=== PATIENT | male | born 1985 | race Caucasian/White ===

== ENCOUNTER 2020-10-22 11:07 | Emergency (ER) | payer MEDICAID, SELFPAY ==
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
[2020-10-22 11:22] VITALS: BP 120/69; PULSE 84; RESP 20; TEMP 36.6; O2SAT 98; BMI 19.0
[2020-10-22 12:00] VITALS: BP 126/66; PULSE 79; RESP 18; TEMP 36.6; O2SAT 99
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
[2020-10-22 12:31] LABS: MANUAL DIFF FLAG NO
[2020-10-22 12:33] LABS: Basophils Percent Auto 0.3 % (0-2); Eosinophils Percent Auto 0.6 % (0-4); Hematocrit 42.6 % (42-52); Hemoglobin 13.2 g/dl (14.0-18.0); Imm Gran Abs Auto 0.01 X10*3/uL (0.00-0.03); Imm Gran Pct Auto 0.2 % (0.0-0.4); Lymphocytes Percent Auto 15.6 % (20-40); Mean Corpuscular Hemoglobin 25.8 pg (27.0-33.0); Mean Corpuscular Volume 83.2 fL (80-98); Mean Platelet Volume 9.7 fL (9.4-12.4); Monocytes Absolute Auto 0.5 X10*3/uL (0.1-1.2); Monocytes Percent Auto 7.4 % (2-11); Neutrophils Absolute Auto 4.7 X10*3/uL (2.0-8.3); Neutrophils Percent Auto 75.9 % (45-73); Platelet Count 298 X10*3/uL (160-400); Red Blood Count 5.12 X10*6/uL (4.60-5.80); Red Cell Distribution Width 14.6 % (11.0-16.0); White Blood Count 6.2 X10*3/uL (4.8-10.8)
[2020-10-22 12:50] LABS: Ethanol < 10 mg/dL
[2020-10-22 12:56] LABS: Alanine Aminotransferase 13 U/L (0-40); Albumin Level 4.1 g/dL (3.5-5.0); Alkaline Phosphatase 89 U/L (39-117); Anion Gap 9 (12-20); Aspartate Amino Transferase 17 U/L (5-37); Bilirubin Total 0.3 mg/dL (0.0-1.0); Blood Urea Nitrogen 7 mg/dL (9-16); Calcium 8.8 mg/dL (8.4-10.2); Carbon Dioxide 33 mmol/L (22-29); Chloride 104 mmol/L (96-108); Creatinine Clr Calc Pharmacy 89.7; Estimated Glomerular Filt Rate > 60; Glucose Random 101 mg/dL (60-115); Potassium 4.2 mmol/L (3.3-5.1); Sodium 142 mmol/L (135-145); Total Protein 6.8 g/dL (6.5-8.0)
[2020-10-22 12:56] LABS: Glucose Urine UA NEG (NEG); Leukocyte Esterase Urine NEG (NEG); Nitrite Urine NEG (NEG); Specific Gravity - Urine 1.025 (1.005-1.025); Urine Blood NEG (NEG); Urine Ketones 5 MG/DL (NEG); Urine Protein NEG (NEG-TRACE)
[2020-10-22 13:05] LABS: Appearance Urine CLEAR; Color Urine YELLOW
[2020-10-22 13:24] LABS: Amorphous Sediment Urine 4+ /LPF; RBC Urine 0 /HPF (0); WBC Urine 0 /HPF (0-4)
[2020-10-22 13:42] LABS: Amphetamine Screen Urine Not Detected (Not Detect); Barbiturates, Urine Not Detected (Not Detect); Benzodiazepines Screen Urine Not Detected (Not Detect); Cannabinoid Screen Urine POSITIVE (Not Detect); Cocaine Screen Urine POSITIVE (Not Detect); Opiate Screen Urine POSITIVE (Not Detect); Phencyclidine Screen Urine Not Detected (Not Detect)
== END 2020-10-22 16:43 | disposition home or self-care (01) ==
PROVIDERS: Nurse Practitioner Primary Care; Emergency Provider Internal Medicine
DX: S02.2XXA Fracture of nasal bones, initial encounter for closed fracture (principal); F33.1 Major depressive disorder, recurrent, moderate; F41.1 Generalized anxiety disorder; F43.0 Acute stress reaction; Y04.8XXA Assault by other bodily force, initial encounter; Y93.9 Activity, unspecified; Y92.9 Unspecified place or not applicable; Y99.9 Unspecified external cause status
CPT/HCPCS: 36415; 70160; 80053; 80307; 80320; 81001; 85025; 99284

== ENCOUNTER 2022-07-03 08:04 | Emergency (ER) | payer MEDICAID, SELFPAY ==
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
[2022-07-03 08:09] VITALS: BP 108/61; PULSE 85; RESP 19; TEMP 36.6; O2SAT 100; BMI 20.5
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
== END 2022-07-03 10:52 | disposition home or self-care (01) ==
PROVIDERS: Emergency Provider Emergency Medicine
DX: R07.81 Pleurodynia (principal); R07.89 Other chest pain; Z79.899 Other long term (current) drug therapy
CPT/HCPCS: 71101; 99283

== ENCOUNTER 2022-07-20 13:27 | Emergency (ER) | payer MEDICAID, SELFPAY ==
[2022-07-20 13:41] VITALS: BP 132/80; PULSE 77; RESP 17; TEMP 36.9; O2SAT 98
[2022-07-20 13:46] VITALS: BP 125/81; BP 132/80; PULSE 77; PULSE 86; RESP 17; TEMP 36.9; O2SAT 98; BMI 21.2
--- NOTE | 2022-07-20 14:23 | ECG_ITS ---
Test Reason : SUBSTANCE ABUSE Blood Pressure : / mmHG Vent. Rate : 060 BPM Atrial Rate : 060 BPM P-R Int : 162 ms QRS Dur : 082 ms QT Int : 392 ms P-R-T Axes : 007 076 064 degrees QTc Int : 392 ms Normal sinus rhythm with sinus arrhythmia Normal ECG When compared with ECG of 30-AUG-2018 14:20, No significant change was found Referred By: Karoline Hobbs Electronically Signed By:STEWART TIDWELL MD
--- NOTE | 2022-07-20 14:24 | ED.PSYCH ---
HPI - Psych General Chief Complaint: Psychiatric Symptoms <Karoline Hobbs MD - Last Filed: 07/20/22 18:45> Stated Complaint: SI <Karoline Hobbs MD - Last Filed: 07/20/22 18:45> Time Seen by Provider: 07/20/22 14:19 <Karoline Hobbs MD - Last Filed: 07/20/22 18:45> Source: patient and EMS <Karoline Hobbs MD - Last Filed: 07/20/22 18:45> Mode of arrival: EMS <Karoline Hobbs MD - Last Filed: 07/20/22 18:45> Limitations: no limitations <Karoline Hobbs MD - Last Filed: 07/20/22 18:45> History of Present Illness HPI Narrative: Patient comes to the emergency room complaining of depression, feeling suicidal, planning to jump of a bridge or if her of a moving car. Patient was found behind a senior [employer]. Patient seemed confused, no signs of trauma. Patient denies falling, hitting his head. Patient stated that he took have Suboxone from a clinic this morning. Patient's main concern is that he has not slept in 3 days. Patient denies homicidal ideation <Karoline Hobbs MD - Last Filed: 07/20/22 18:45> Related Data Home Medications: Previous Rx's Medication Instructions Recorded ibuprofen 600 mg tablet 600 mg PO Q8H PRN pain #10 tabs 07/03/22 lidocaine 5 % topical patch 1 patch topical DAILY #15 ea 07/03/22 <Karoline Hobbs MD - Last Filed: 07/20/22 18:45> Allergies/Adverse Reactions: Allergies Allergy/AdvReac Type Severity Reaction Status Date / Time fluoxetine [From PROZAC] AdvReac Severe AGITATION/A Unverified 05/28/20 15:51 GGRESSIVE <Karoline Hobbs MD - Last Filed: 07/20/22 18:45> Review of Systems Review of Systems: Constitutional : No Weight loss, No Fever, No Chills, No Night Sweats, No Fatigue, No Malaise ENT/Mouth : No Hearing loss, No Ear Pain, No Nasal Congestion, No Sinus Pain, No Hoarseness, No sore throat, No Rhinorrhea, No Swallowing Difficulty Eyes: No Eye Pain, No Swelling, No Redness, No Foreign Body, No Discharge, No Vision Changes Cardiovascular : No Chest Pain, No SOB, No Dyspnea on Exertion, No Orthopnea, No Edema, No Palpitations Respiratory : No Cough, No Sputum, No Wheezing, No Smoke Exposure, No Dyspnea Gastrointestinal : No Nausea, No Vomiting, No Diarrhea, No Constipation, No abdominal Pain, No Hematochezia, No Melena Genitourinary : no irregular bleeding, No Dysuria, No Urinary Frequency, No Hematuria, No Urinary Incontinence, No Urgency, No Flank Pain, No Urinary Flow Changes, No Hesitancy Musculoskeletal : No joint pain, No Myalgias, No Joint Swelling Skin : No Skin Lesions, No rash Neuro : No Weakness, No Numbness, No Paresthesias, No Loss of Consciousness, No Dizziness, No Headache, complaining of not being able to sleep for 3 days Psych : Complaining of anxiety, depression, suicidal ideation, homicidal ideation Heme/Lymph: No Bruising, No Bleeding,No Lymphadenopathy Endocrine : No Polyuria, No Polydipsia, No Temperature Intolerance <Karoline Hobbs MD - Last Filed: 07/20/22 18:45> [facility] Past Medical History Medical History: Medical History Substance abuse <Karoline Hobbs MD - Last Filed: 07/20/22 18:45> Social History Social History: Social History Alcohol intake: current Smoked in Last 30 Days: Yes Use of substances other than those prescribed or required for medical reasons: Yes Substance Use Type: Other Advance Directives: No <Karoline Hobbs MD - Last Filed: 07/20/22 18:45> Physical Exam Vital Signs: Vital Signs: Last Vital Signs Temp 98.3 F 07/21/22 09:19 Pulse 97 07/21/22 09:19 Resp 17 07/21/22 09:19 BP 143/80 H 07/21/22 09:19 Pulse Ox 97 07/21/22 09:19 O2 Del Method 07/21/22 09:19 BMI result Body Mass Index 21.2 <Karoline Hobbs MD - Last Filed: 07/20/22 18:45> Vital Signs: Last Vital Signs Temp 98.3 F 07/21/22 09:19 Pulse 97 07/21/22 09:19 Resp 17 07/21/22 09:19 BP 143/80 H 07/21/22 09:19 Pulse Ox 97 07/21/22 09:19 O2 Del Method 07/21/22 09:19 BMI result Body Mass Index 21.2 <Jaya Rodarte MD - Last Filed: 07/21/22 09:36> Const: Other: Appearance: Alert. Oriented X3. No acute distress. Somnolent but easily arousable Eyes: Pupils equal, round and reactive to light. ENT: Pharynx normal. Neck: Normal inspection. Neck supple. No lymph nodes noted. No crepitus CVS: Normal heart rate and rhythm. Pulses normal. Normal S1 and S2 Respiratory: No respiratory distress. Breath sounds normal. No Wheezing. No rales Abdomen: Soft and nontender. No rigidity. No distention. Skin: Skin warm and dry. Normal skin color. Normal skin turgor. Extremities: No lower extremity edema. No Lacerations. No Rash Neuro: Oriented X 3. No motor deficit. No sensory deficit. Moving all extremities. No slurred speech. CN 2 through 12 grossly intact Psych: calm, cooperative, normal affect <Karoline Hobbs MD - Last Filed: 07/20/22 18:45> Course Course Course Narrative: Patient's baseline labs are pending. Afterwards, when medically cleared, patient [facility] Before patient's labs have been reviewed, patient's U tox is positive for opiates, fentanyl and cocaine. [facility] consult pending. Physician observation started at 15:30 Mass path was reviewed, patient picked up his Suboxone on 07/18/2022, states that his Suboxone was swollen. Care team[facility] evaluated the patient. We will dose him today 1 dose with Suboxone. Tomorrow in the morning he can be discharged. All the papers will be ready for discharge. Patient is here yes for symptomatic treatment, no other insults or treatment pending. Patient is not longer suicidal. <Karoline Hobbs MD - Last Filed: 07/20/22 18:45> Patient's baseline labs are pending. Afterwards, when medically cleared, patient is to be seen by [facility]. Before patient's labs have been reviewed, patient's U tox is positive for opiates, fentanyl and cocaine. [facility] consult pending. Physician observation started at 15:30 Mass path was reviewed, patient picked up his Suboxone on 07/18/2022, states that his Suboxone was swollen. [facility] team[facility] evaluated the patient. We will dose him today 1 dose with Suboxone. Tomorrow in the morning he can be discharged. All the papers will be ready for discharge. Patient is here yes for symptomatic treatment, no other insults or treatment pending. Patient is not longer suicidal. 0935: End physician observation: The patient has been evaluated by the care team and there was a plan for him to start Suboxone. Patient has no complaints and he will be discharged with instructions. <Jaya Rodarte MD - Last Filed: 07/21/22 09:36> Medications Administered Discontinued Medications Generic Name Dose Route Start Last Admin Trade Name Freq PRN Reason Stop Dose Admin Buprenorphine/Naloxone 1 film 07/20/22 18:43 07/20/22 18:48 Buprenorphine/Naloxone 8/2 Mg Film SUBLINGUAL 07/20/22 18:44 1 film ONCE ONE Administration <Karoline Hobbs MD - Last Filed: 07/20/22 18:45> Medications Administered Discontinued Medications Generic Name Dose Route Start Last Admin Trade Name Freq PRN Reason Stop Dose Admin Buprenorphine/Naloxone 1 film 07/20/22 18:43 07/20/22 18:48 Buprenorphine/Naloxone 8/2 Mg Film SUBLINGUAL 07/20/22 18:44 1 film ONCE ONE Administration <Jaya Rodarte MD - Last Filed: 07/21/22 09:36> MDM - Psych Lab Data Result diagrams: : 07/20/22 14:50 07/20/22 14:50 <Karoline Hobbs MD - Last Filed: 07/20/22 18:45> Labs: Lab Results 07/20/22 07/20/22 07/20/22 Range/Units 14:50 14:50 14:50 WBC 10.4 (4.8-10.8) X10*3/uL RBC 5.49 (4.60-5.80) X10*6/uL Hgb 14.3 (14.0-18.0) g/dl Hct 45.6 (42.0-52.0) % MCV 83.1 (80.0-98.0) fL MCH 26.0 L (27.0-33.0) pg MCHC 31.4 (31.0-36.0) g/dl RDW 14.8 (11.0-16.0) % Plt Count 222 (160-400) X10*3/uL MPV 9.7 (9.4-12.4) fL Immature Gran % (Auto) 0.3 (0.0-0.4) % Neut % (Auto) 85.3 H (45-73) % Lymph % (Auto) 8.7 L (20-40) % Whitman % (Auto) 4.9 (2-11) % Eos % (Auto) 0.4 (0-4) % Baso % (Auto) 0.4 (0-2) % Lymph # (Auto) 0.9 L (1.2-4.9) X10*3/uL [place]man # (Auto) 0.5 (0.1-1.2) X10*3/uL Eos # (Auto) 0.0 (0.0-0.4) X10*3/uL Baso # (Auto) 0.0 (0.0-0.2) X10*3/uL Abs Immat Gran (auto) 0.03 (0.00-0.03) X10*3/uL Absolute Neuts (auto) 8.9 H (2.0-8.3) x10*3/uL Absolute Nucleated RBC 0.000 (0.0-0.012) X10*3/uL Nucleated RBC % (auto) 0.0 (0.0-0.2) /100WBC Sodium 143 (135-145) mmol/L Potassium 3.8 (3.3-5.1) mmol/L Chloride 106 (96-108) mmol/L Carbon Dioxide 27 (22-29) mmol/L Anion Gap 14 (12-20) BUN 11 (9-16) mg/dL Creatinine 0.76 (0.5-1.4) mg/dL Estim Creat Clear Calc 120.6 Estimated GFR > 60 Random Glucose 100 (60-115) mg/dL Calcium 8.9 (8.4-10.2) mg/dL Magnesium 2.3 (1.6-2.6) mg/dL Total Bilirubin 0.4 (0.0-1.0) mg/dL Direct Bilirubin 0.2 (0.0-0.5) mg/dL AST 17 (5-37) U/L ALT 12 (0-40) U/L Alkaline Phosphatase 99 (39-117) U/L Troponin I High Sens < 3.5 (<3.5-35.0) ng/L Total Protein 6.9 (6.5-8.0) g/dL Albumin 4.1 (3.5-5.0) g/dL Lipase 15 (8-78) U/L Urine Color Urine Appearance Urine pH (5.0-9.0) Ur Specific [place] (1.005-1.025) Urine Protein (Neg-Trace) mg/dL Urine Glucose (UA) (Negative) mg/dL Urine Ketones (Negative) mg/dL Urine Blood (Negative) Urine Nitrite (Negative) Ur Leukocyte Esterase (Negative) Urine Opiates Screen (Not Detect) Urine Fentanyl Screen (Not Detect) Ur Barbiturates Screen (Not Detect) Ur Phencyclidine Scrn (Not Detect) Ur Amphetamines Screen (Not Detect) U Benzodiazepines Scrn (Not Detect) Urine Cocaine Screen (Not Detect) U Marijuana (THC) Screen (Not Detect) Ethyl Alcohol mg/dL COVID-19 ([facility]) (Negative) COVID-19 Clin Com 07/20/22 07/20/22 07/20/22 Range/Units 14:50 14:50 14:50 WBC (4.8-10.8) X10*3/uL RBC (4.60-5.80) X10*6/uL Hgb (14.0-18.0) g/dl Hct (42.0-52.0) % MCV (80.0-98.0) fL MCH (27.0-33.0) pg MCHC (31.0-36.0) g/dl RDW (11.0-16.0) % Plt Count (160-400) X10*3/uL MPV (9.4-12.4) fL Immature Gran % (Auto) (0.0-0.4) % Neut % (Auto) (45-73) % Lymph % (Auto) (20-40) % Whitman % (Auto) (2-11) % Eos % (Auto) (0-4) % Baso % (Auto) (0-2) % Lymph # (Auto) (1.2-4.9) X10*3/uL [place] # (Auto) (0.1-1.2) X10*3/uL Eos # (Auto) (0.0-0.4) X10*3/uL Baso # (Auto) (0.0-0.2) X10*3/uL Abs Immat Gran (auto) (0.00-0.03) X10*3/uL Absolute Neuts (auto) (2.0-8.3) x10*3/uL Absolute Nucleated RBC (0.0-0.012) X10*3/uL Nucleated RBC % (auto) (0.0-0.2) /100WBC Sodium (135-145) mmol/L Potassium (3.3-5.1) mmol/L Chloride (96-108) mmol/L Carbon Dioxide (22-29) mmol/L Anion Gap (12-20) BUN (9-16) mg/dL Creatinine (0.5-1.4) mg/dL Estim Creat Clear Calc Estimated GFR Random Glucose (60-115) mg/dL Calcium (8.4-10.2) mg/dL Magnesium (1.6-2.6) mg/dL Total Bilirubin (0.0-1.0) mg/dL Direct Bilirubin (0.0-0.5) mg/dL AST (5-37) U/L ALT (0-40) U/L Alkaline Phosphatase (39-117) U/L Troponin I High Sens (<3.5-35.0) ng/L Total Protein (6.5-8.0) g/dL Albumin (3.5-5.0) g/dL Lipase (8-78) U/L Urine Color Yellow Urine Appearance Cloudy Urine pH 7.0 (5.0-9.0) Ur Specific [place] 1.020 (1.005-1.025) Urine Protein Negative (Neg-Trace) mg/dL Urine Glucose (UA) Negative (Negative) mg/dL Urine Ketones 15 (Negative) mg/dL Urine Blood Negative (Negative) Urine Nitrite Negative (Negative) Ur Leukocyte Esterase Negative (Negative) Urine Opiates Screen (Not Detect) Urine Fentanyl Screen (Not Detect) Ur Barbiturates Screen (Not Detect) Ur Phencyclidine Scrn (Not Detect) Ur Amphetamines Screen (Not Detect) U Benzodiazepines Scrn (Not Detect) Urine Cocaine Screen (Not Detect) U Marijuana (THC) Screen (Not Detect) Ethyl Alcohol < 10 mg/dL COVID-19 ([facility]) Negative (Negative) COVID-19 Clin Com See Note 07/20/22 Range/Units 14:50 WBC (4.8-10.8) X10*3/uL RBC (4.60-5.80) X10*6/uL Hgb (14.0-18.0) g/dl Hct (42.0-52.0) % MCV (80.0-98.0) fL MCH (27.0-33.0) pg MCHC (31.0-36.0) g/dl RDW (11.0-16.0) % Plt Count (160-400) X10*3/uL MPV (9.4-12.4) fL Immature Gran % (Auto) (0.0-0.4) % Neut % (Auto) (45-73) % Lymph % (Auto) (20-40) % Whitman % (Auto) (2-11) % Eos % (Auto) (0-4) % Baso % (Auto) (0-2) % Lymph # (Auto) (1.2-4.9) X10*3/uL [place] # (Auto) (0.1-1.2) X10*3/uL Eos # (Auto) (0.0-0.4) X10*3/uL Baso # (Auto) (0.0-0.2) X10*3/uL Abs Immat Gran (auto) (0.00-0.03) X10*3/uL Absolute Neuts (auto) (2.0-8.3) x10*3/uL Absolute Nucleated RBC (0.0-0.012) X10*3/uL Nucleated RBC % (auto) (0.0-0.2) /100WBC Sodium (135-145) mmol/L Potassium (3.3-5.1) mmol/L Chloride (96-108) mmol/L Carbon Dioxide (22-29) mmol/L Anion Gap (12-20) BUN (9-16) mg/dL Creatinine (0.5-1.4) mg/dL Estim Creat Clear Calc Estimated GFR Random Glucose (60-115) mg/dL Calcium (8.4-10.2) mg/dL Magnesium (1.6-2.6) mg/dL Total Bilirubin (0.0-1.0) mg/dL Direct Bilirubin (0.0-0.5) mg/dL AST (5-37) U/L ALT (0-40) U/L Alkaline Phosphatase (39-117) U/L Troponin I High Sens (<3.5-35.0) ng/L Total Protein (6.5-8.0) g/dL Albumin (3.5-5.0) g/dL Lipase (8-78) U/L Urine Color Urine Appearance Urine pH (5.0-9.0) Ur Specific [place] (1.005-1.025) Urine Protein (Neg-Trace) mg/dL Urine Glucose (UA) (Negative) mg/dL Urine Ketones (Negative) mg/dL Urine Blood (Negative) Urine Nitrite (Negative) Ur Leukocyte Esterase (Negative) Urine Opiates Screen POSITIVE H (Not Detect) Urine Fentanyl Screen POSITIVE H (Not Detect) Ur Barbiturates Screen Not Detected (Not Detect) Ur Phencyclidine Scrn Not Detected (Not Detect) Ur Amphetamines Screen Not Detected (Not Detect) U Benzodiazepines Scrn Not Detected (Not Detect) Urine Cocaine Screen POSITIVE H (Not Detect) U Marijuana (THC) Screen Not Detected (Not Detect) Ethyl Alcohol mg/dL COVID-19 ([facility]) (Negative) COVID-19 Clin Com <Karoline Hobbs MD - Last Filed: 07/20/22 18:45> Lab Results 07/20/22 07/20/22 07/20/22 Range/Units 14:50 14:50 14:50 WBC 10.4 (4.8-10.8) X10*3/uL RBC 5.49 (4.60-5.80) X10*6/uL Hgb 14.3 (14.0-18.0) g/dl Hct 45.6 (42.0-52.0) % MCV 83.1 (80.0-98.0) fL MCH 26.0 L (27.0-33.0) pg MCHC 31.4 (31.0-36.0) g/dl RDW 14.8 (11.0-16.0) % Plt Count 222 (160-400) X10*3/uL MPV 9.7 (9.4-12.4) fL Immature Gran % (Auto) 0.3 (0.0-0.4) % Neut % (Auto) 85.3 H (45-73) % Lymph % (Auto) 8.7 L (20-40) % [place] % (Auto) 4.9 (2-11) % Eos % (Auto) 0.4 (0-4) % Baso % (Auto) 0.4 (0-2) % Lymph # (Auto) 0.9 L (1.2-4.9) X10*3/uL [place] # (Auto) 0.5 (0.1-1.2) X10*3/uL Eos # (Auto) 0.0 (0.0-0.4) X10*3/uL Baso # (Auto) 0.0 (0.0-0.2) X10*3/uL Abs Immat Gran (auto) 0.03 (0.00-0.03) X10*3/uL Absolute Neuts (auto) 8.9 H (2.0-8.3) x10*3/uL Absolute Nucleated RBC 0.000 (0.0-0.012) X10*3/uL Nucleated RBC % (auto) 0.0 (0.0-0.2) /100WBC Sodium 143 (135-145) mmol/L Potassium 3.8 (3.3-5.1) mmol/L Chloride 106 (96-108) mmol/L Carbon Dioxide 27 (22-29) mmol/L Anion Gap 14 (12-20) BUN 11 (9-16) mg/dL Creatinine 0.76 (0.5-1.4) mg/dL Estim Creat Clear Calc 120.6 Estimated GFR > 60 Random Glucose 100 (60-115) mg/dL Calcium 8.9 (8.4-10.2) mg/dL Magnesium 2.3 (1.6-2.6) mg/dL Total Bilirubin 0.4 (0.0-1.0) mg/dL Direct Bilirubin 0.2 (0.0-0.5) mg/dL AST 17 (5-37) U/L ALT 12 (0-40) U/L Alkaline Phosphatase 99 (39-117) U/L Troponin I High Sens < 3.5 (<3.5-35.0) ng/L Total Protein 6.9 (6.5-8.0) g/dL Albumin 4.1 (3.5-5.0) g/dL Lipase 15 (8-78) U/L Urine Color Urine Appearance Urine pH (5.0-9.0) Ur Specific [place] (1.005-1.025) Urine Protein (Neg-Trace) mg/dL Urine Glucose (UA) (Negative) mg/dL Urine Ketones (Negative) mg/dL Urine Blood (Negative) Urine Nitrite (Negative) Ur Leukocyte Esterase (Negative) Urine Opiates Screen (Not Detect) Urine Fentanyl Screen (Not Detect) Ur Barbiturates Screen (Not Detect) Ur Phencyclidine Scrn (Not Detect) Ur Amphetamines Screen (Not Detect) U Benzodiazepines Scrn (Not Detect) Urine Cocaine Screen (Not Detect) U Marijuana (THC) Screen (Not Detect) Ethyl Alcohol mg/dL COVID-19 ([facility]) (Negative) COVID-19 Clin Com 07/20/22 07/20/22 07/20/22 Range/Units 14:50 14:50 14:50 WBC (4.8-10.8) X10*3/uL RBC (4.60-5.80) X10*6/uL Hgb (14.0-18.0) g/dl Hct (42.0-52.0) % MCV (80.0-98.0) fL MCH (27.0-33.0) pg MCHC (31.0-36.0) g/dl RDW (11.0-16.0) % Plt Count (160-400) X10*3/uL MPV (9.4-12.4) fL Immature Gran % (Auto) (0.0-0.4) % Neut % (Auto) (45-73) % Lymph % (Auto) (20-40) % [place] % (Auto) (2-11) % Eos % (Auto) (0-4) % Baso % (Auto) (0-2) % Lymph # (Auto) (1.2-4.9) X10*3/uL [place] # (Auto) (0.1-1.2) X10*3/uL Eos # (Auto) (0.0-0.4) X10*3/uL Baso # (Auto) (0.0-0.2) X10*3/uL Abs Immat Gran (auto) (0.00-0.03) X10*3/uL Absolute Neuts (auto) (2.0-8.3) x10*3/uL Absolute Nucleated RBC (0.0-0.012) X10*3/uL Nucleated RBC % (auto) (0.0-0.2) /100WBC Sodium (135-145) mmol/L Potassium (3.3-5.1) mmol/L Chloride (96-108) mmol/L Carbon Dioxide (22-29) mmol/L Anion Gap (12-20) BUN (9-16) mg/dL Creatinine (0.5-1.4) mg/dL Estim Creat Clear Calc Estimated GFR Random Glucose (60-115) mg/dL Calcium (8.4-10.2) mg/dL Magnesium (1.6-2.6) mg/dL Total Bilirubin (0.0-1.0) mg/dL Direct Bilirubin (0.0-0.5) mg/dL AST (5-37) U/L ALT (0-40) U/L Alkaline Phosphatase (39-117) U/L Troponin I High Sens (<3.5-35.0) ng/L Total Protein (6.5-8.0) g/dL Albumin (3.5-5.0) g/dL Lipase (8-78) U/L Urine Color Yellow Urine Appearance Cloudy Urine pH 7.0 (5.0-9.0) Ur Specific [place] 1.020 (1.005-1.025) Urine Protein Negative (Neg-Trace) mg/dL Urine Glucose (UA) Negative (Negative) mg/dL Urine Ketones 15 (Negative) mg/dL Urine Blood Negative (Negative) Urine Nitrite Negative (Negative) Ur Leukocyte Esterase Negative (Negative) Urine Opiates Screen (Not Detect) Urine Fentanyl Screen (Not Detect) Ur Barbiturates Screen (Not Detect) Ur Phencyclidine Scrn (Not Detect) Ur Amphetamines Screen (Not Detect) U Benzodiazepines Scrn (Not Detect) Urine Cocaine Screen (Not Detect) U Marijuana (THC) Screen (Not Detect) Ethyl Alcohol < 10 mg/dL COVID-19 ([facility]) Negative (Negative) COVID-19 Clin Com See Note 07/20/22 Range/Units 14:50 WBC (4.8-10.8) X10*3/uL RBC (4.60-5.80) X10*6/uL Hgb (14.0-18.0) g/dl Hct (42.0-52.0) % MCV (80.0-98.0) fL MCH (27.0-33.0) pg MCHC (31.0-36.0) g/dl RDW (11.0-16.0) % Plt Count (160-400) X10*3/uL MPV (9.4-12.4) fL Immature Gran % (Auto) (0.0-0.4) % Neut % (Auto) (45-73) % Lymph % (Auto) (20-40) % [place] % (Auto) (2-11) % Eos % (Auto) (0-4) % Baso % (Auto) (0-2) % Lymph # (Auto) (1.2-4.9) X10*3/uL [place] # (Auto) (0.1-1.2) X10*3/uL Eos # (Auto) (0.0-0.4) X10*3/uL Baso # (Auto) (0.0-0.2) X10*3/uL Abs Immat Gran (auto) (0.00-0.03) X10*3/uL Absolute Neuts (auto) (2.0-8.3) x10*3/uL Absolute Nucleated RBC (0.0-0.012) X10*3/uL Nucleated RBC % (auto) (0.0-0.2) /100WBC Sodium (135-145) mmol/L Potassium (3.3-5.1) mmol/L Chloride (96-108) mmol/L Carbon Dioxide (22-29) mmol/L Anion Gap (12-20) BUN (9-16) mg/dL Creatinine (0.5-1.4) mg/dL Estim Creat Clear Calc Estimated GFR Random Glucose (60-115) mg/dL Calcium (8.4-10.2) mg/dL Magnesium (1.6-2.6) mg/dL Total Bilirubin (0.0-1.0) mg/dL Direct Bilirubin (0.0-0.5) mg/dL AST (5-37) U/L ALT (0-40) U/L Alkaline Phosphatase (39-117) U/L Troponin I High Sens (<3.5-35.0) ng/L Total Protein (6.5-8.0) g/dL Albumin (3.5-5.0) g/dL Lipase (8-78) U/L Urine Color Urine Appearance Urine pH (5.0-9.0) Ur Specific [place] (1.005-1.025) Urine Protein (Neg-Trace) mg/dL Urine Glucose (UA) (Negative) mg/dL Urine Ketones (Negative) mg/dL Urine Blood (Negative) Urine Nitrite (Negative) Ur Leukocyte Esterase (Negative) Urine Opiates Screen POSITIVE H (Not Detect) Urine Fentanyl Screen POSITIVE H (Not Detect) Ur Barbiturates Screen Not Detected (Not Detect) Ur Phencyclidine Scrn Not Detected (Not Detect) Ur Amphetamines Screen Not Detected (Not Detect) U Benzodiazepines Scrn Not Detected (Not Detect) Urine Cocaine Screen POSITIVE H (Not Detect) U Marijuana (THC) Screen Not Detected (Not Detect) Ethyl Alcohol mg/dL COVID-19 ([facility]) (Negative) COVID-19 Clin Com <Jaya Rodarte MD - Last Filed: 07/21/22 09:36> Discharge Plan Discharge Clinical Impression: Substance abuse <Karoline Hobbs MD - Last Filed: 07/20/22 18:45> Patient Disposition: Home, Self-Care <Karoline Hobbs MD - Last Filed: 07/20/22 18:45> Instructions: Polysubstance Abuse (ED) <Karoline Hobbs MD - Last Filed: 07/20/22 18:45> Additional Instructions: Please report to the Suboxone clinic 1st thing in the morning. Please follow-up with your primary care physician tomorrow. If you have any worsening or new symptoms, please return to the emergency room or call 911 <Karoline Hobbs MD - Last Filed: 07/20/22 18:45> Prescriptions: No Action lidocaine 5 % adhesive patch,medicated 1 patch topical DAILY Qty: 15 0RF Rx Instructions: leave on most painful area for up to 12 hrs ibuprofen 600 mg tablet 600 mg PO Q8H PRN (Reason: pain) Qty: 10 0RF <Karoline Hobbs MD - Last Filed: 07/20/22 18:45>
--- NOTE | 2022-07-20 14:30 | PC.NURSE ---
pt seen by md, aware of plan of care.
[2022-07-20 14:57] LABS: MANUAL DIFF FLAG NO
[2022-07-20 15:01] LABS: Basophils Percent Auto 0.4 % (0-2); Eosinophils Percent Auto 0.4 % (0-4); Hematocrit 45.6 % (42.0-52.0); Hemoglobin 14.3 g/dl (14.0-18.0); Imm Gran Abs Auto 0.03 X10*3/uL (0.00-0.03); Imm Gran Pct Auto 0.3 % (0.0-0.4); Lymphocytes Absolute Auto 0.9 X10*3/uL (1.2-4.9); Lymphocytes Percent Auto 8.7 % (20-40); Mean Corpuscular HGB Conc 31.4 g/dl (31.0-36.0); Mean Corpuscular Volume 83.1 fL (80.0-98.0); Mean Platelet Volume 9.7 fL (9.4-12.4); Monocytes Absolute Auto 0.5 X10*3/uL (0.1-1.2); Monocytes Percent Auto 4.9 % (2-11); Neutrophils Absolute Auto 8.9 x10*3/uL (2.0-8.3); Neutrophils Percent Auto 85.3 % (45-73); Platelet Count 222 X10*3/uL (160-400); Red Blood Count 5.49 X10*6/uL (4.60-5.80); Red Cell Distribution Width 14.8 % (11.0-16.0); White Blood Count 10.4 X10*3/uL (4.8-10.8)
[2022-07-20 15:03] LABS: Appearance Urine Cloudy; Color Urine Yellow; Glucose Urine UA Negative (Negative); Leukocyte Esterase Urine Negative (Negative); Nitrite Urine Negative (Negative); Urine Blood Negative (Negative); Urine Ketones 15 mg/dL (Negative); Urine Protein Negative (Neg-Trace)
[2022-07-20 15:15] LABS: COVID-19 Test Negative (Negative)
[2022-07-20 15:18] LABS: Ethanol < 10 mg/dL
[2022-07-20 15:22] LABS: Alanine Aminotransferase 12 U/L (0-40); Albumin Level 4.1 g/dL (3.5-5.0); Alkaline Phosphatase 99 U/L (39-117); Amphetamine Screen Urine Not Detected (Not Detect); Anion Gap 14 (12-20); Aspartate Amino Transferase 17 U/L (5-37); Barbiturates, Urine Not Detected (Not Detect); Benzodiazepines Screen Urine Not Detected (Not Detect); Bilirubin Direct 0.2 mg/dL (0.0-0.5); Bilirubin Total 0.4 mg/dL (0.0-1.0); Blood Urea Nitrogen 11 mg/dL (9-16); Calcium 8.9 mg/dL (8.4-10.2); Cannabinoid Screen Urine Not Detected (Not Detect); Carbon Dioxide 27 mmol/L (22-29); Chloride 106 mmol/L (96-108); Cocaine Screen Urine POSITIVE (Not Detect); Creatinine Clr Calc Pharmacy 120.6; Estimated Glomerular Filt Rate > 60; Fentanyl, urine POSITIVE (Not Detect); Glucose Random 100 mg/dL (60-115); Lipase 15 U/L (8-78); Magnesium 2.3 mg/dL (1.6-2.6); Opiate Screen Urine POSITIVE (Not Detect); Phencyclidine Screen Urine Not Detected (Not Detect); Potassium 3.8 mmol/L (3.3-5.1); Sodium 143 mmol/L (135-145); Total Protein 6.9 g/dL (6.5-8.0)
[2022-07-20 15:28] LABS: Troponin-I High Sensitivity < 3.5 ng/L (<3.5-35.0)
[2022-07-20 16:52] VITALS: BP 125/81; PULSE 66; RESP 18; TEMP 37.2; O2SAT 99
--- NOTE | 2022-07-20 18:28 | PC.NURSE ---
Care team at the bedside.
--- NOTE | 2022-07-20 18:45 | PC.NURSE ---
Pt seen by care team. Care team reports pt to be discharged in the morning. Dr. Hobbs will order Suboxone for today. Pt aware of plan of care.
[2022-07-20] MEDS: Buprenorphine/Naloxone 8/2 mg FILM 1 FILM SUBLINGUAL (18:48)
--- NOTE | 2022-07-20 18:49 | MHC.CARE ---
Pt is a 37 year old male who is seen in the Behavioral Pod at [facility] due to presenting lethargic with SI. Pt states felt like killing myself. He reports feeling a little better since arriving to the ED. He reports recently getting kicked out of his friends house and staying at a food truck with a blanket. Pt reports visiting the [facility] on 07/18/2022 and reciveing a few days worth of suboxone, which he states got stolen from the food truck. He reports withdrawal symptoms such as body aches and requested a dose of suboxone. He denises current SI/HI, and denies AVH. Plan is to give pt a dose and discharge in the morning, this plan is discussed with and agreed upon with Dr. Hobbs. Pt is aware of plan and agrees to visit [facility] in the morning.
[2022-07-20 22:00] VITALS: RESP 20
[2022-07-21 06:10] VITALS: BP 117/85; PULSE 67; RESP 16; TEMP 36.9; O2SAT 98
--- NOTE | 2022-07-21 06:49 | PC.NURSE ---
report given to ALEXANDRO Butler
[2022-07-21 09:19] VITALS: BP 143/80; PULSE 97; RESP 17; TEMP 36.8; O2SAT 97
== END 2022-07-21 09:45 | disposition home or self-care (01) ==
PROVIDERS: Emergency Provider Emergency Medicine
DX: F33.1 Major depressive disorder, recurrent, moderate (principal); R45.851 Suicidal ideations; F14.10 Cocaine abuse, uncomplicated; Z20.822 Contact with and (suspected) exposure to COVID-19; Z79.899 Other long term (current) drug therapy
CPT/HCPCS: 36415; 80048; 80076; 80307; 81003; 82077; 83690; 83735; 84484; 85025; 87635; 93005; 99285

== ENCOUNTER 2022-08-26 14:05 | Emergency (ER) | payer MEDICAID, SELFPAY ==
[2022-08-26 14:14] VITALS: BMI 19.8
[2022-08-26 15:48] VITALS: RESP 18
--- NOTE | 2022-08-26 15:56 | ECG_ITS ---
Test Reason : MEDICAL CLEARANCE Blood Pressure : / mmHG Vent. Rate : 061 BPM Atrial Rate : 061 BPM P-R Int : 162 ms QRS Dur : 084 ms QT Int : 432 ms P-R-T Axes : -08 080 054 degrees QTc Int : 434 ms Normal sinus rhythm Minimal voltage criteria for LVH, may be normal variant ( Sokolow-Harper ) Borderline ECG When compared with ECG of 20-JUL-2022 14:32, No significant change was found Referred By: Generic ED Physician Electronically Signed By:JENNIFER JENSEN
--- NOTE | 2022-08-26 16:09 | ED.PSYCH ---
HPI - Psych General Chief Complaint: Psychiatric Symptoms <ANGEL Ventura - Last Filed: 08/26/22 17:55> Stated Complaint: Unconcise <ANGEL Ventura - Last Filed: 08/26/22 17:55> Time Seen by Provider: 08/26/22 16:09 <ANGEL Ventura - Last Filed: 08/26/22 17:55> Source: patient and EMS <ANGEL Ventura - Last Filed: 08/26/22 17:55> Mode of arrival: EMS <ANGEL Ventura - Last Filed: 08/26/22 17:55> Limitations: no limitations <ANGEL Ventura - Last Filed: 08/26/22 17:55> History of Present Illness HPI Narrative: 37-year-old male with history of polysubstance abuse and depression with a recent passing away of his mother presents to the ER via EMS after he was found minimally responsive in an alley after using heroing. He is here for evaluation of depression and suicidal ideation. He states he has been using 1 bag of heroin per day. He admits suicidality but is a poor historian. He appears to be under the influence of drugs and is lethargic. He is protecting his airway. airway. . <ANGEL Ventura - Last Filed: 08/26/22 17:55> MD complaint: suicidal ideation, feels depressed and substance abuse <ANGEL Ventura - Last Filed: 08/26/22 17:55> Onset (ago): unknown <ANGEL Ventura - Last Filed: 08/26/22 17:55> History of same: Yes <ANGEL Ventura - Last Filed: 08/26/22 17:55> Exacerbating factors: drug use <ANGEL Ventura Last Filed: 08/26/22 17:55> Context: recent drug abuse and significant life stressor <ANGEL Ventura Last Filed: 08/26/22 17:55> Associated psychiatric symptoms: depression and suicidal ideation <ANGEL Ventura Last Filed: 08/26/22 17:55> Associated symptoms: denies other symptoms <ANGEL Ventura - Last Filed: 08/26/22 17:55> Treatments prior to arrival: none <ANGEL Ventura - Last Filed: 08/26/22 17:55> If self harm: admits thoughts of self harm <ANGEL Ventura - Last Filed: 08/26/22 17:55> Related Data Home Medications: Home Medications Medication Instructions Recorded Confirmed No Known Home Meds 08/26/22 08/26/22 <ANGEL Ventura - Last Filed: 08/26/22 17:55> Allergies/Adverse Reactions: Allergies Allergy/AdvReac Type Severity Reaction Status Date / Time fluoxetine [From PROZAC] AdvReac Severe AGITATION/A Verified 08/28/22 05:37 GGRESSIVE <ANGEL Ventura - Last Filed: 08/26/22 17:55> Review of Systems Review of Systems: Yes Unobtainable due to mental condition and Unobtainable due to mental status <ANGEL Ventura - Last Filed: 08/26/22 17:55> [facility] Past Medical History Medical History: Medical History Substance abuse <ANGEL Ventura - Last Filed: 08/26/22 17:55> Social History Social History: Social History Alcohol intake: unknown Smoked in Last 30 Days: Yes Use of substances other than those prescribed or required for medical reasons: Yes Substance Use Type: Opiates Advance Directives: No Advance Directives Information Provided: No <ANGEL Ventura - Last Filed: 08/26/22 17:55> Physical Exam Vital Signs: Vital Signs: Last Vital Signs Temp 99.3 F 08/28/22 17:45 Pulse 78 08/28/22 17:45 Resp 18 08/28/22 17:45 BP 132/89 08/28/22 17:45 Pulse Ox 98 08/28/22 17:45 O2 Del Method 08/28/22 17:45 BMI result Body Mass Index 19.8 <ANGEL Ventura - Last Filed: 08/26/22 17:55> Vital Signs: Last Vital Signs Temp 99.3 F 08/28/22 17:45 Pulse 78 08/28/22 17:45 Resp 18 08/28/22 17:45 BP 132/89 08/28/22 17:45 Pulse Ox 98 08/28/22 17:45 O2 Del Method 08/28/22 17:45 BMI result Body Mass Index 19.8 <Baljinder Mckeon MD - Last Filed: 08/27/22 07:01> Vital Signs: Last Vital Signs Temp 99.3 F 08/28/22 17:45 Pulse 78 08/28/22 17:45 Resp 18 08/28/22 17:45 BP 132/89 08/28/22 17:45 Pulse Ox 98 08/28/22 17:45 O2 Del Method 08/28/22 17:45 BMI result Body Mass Index 19.8 <ANGEL Perez - Last Filed: 08/28/22 18:01> Appearance: male in his 30s sleeping on the stretcher. Arouses to voice but quickly falls back asleep Eyes: Pupils equal, round and reactive to light. ENT: Pharynx normal. Neck: Normal inspection. Neck supple. CVS: Normal heart rate and rhythm. Pulses normal. Respiratory: No respiratory distress. Breath sounds normal. Abdomen: Soft and nontender. +BS x4 Skin: Skin warm and dry. Normal skin color. Normal skin turgor. No rashes. Extremities: atraumatic x4. Neuro: Lethargic but arouses to voice, answers simple questions and falls back asleep. Refusing to participate in examination/interview <ANGEL Ventura - Last Filed: 08/26/22 17:55> Course Course Course Narrative: 37-year-old male with history of polysubstance abuse and depression presents to the ER for evaluation after he was found minimally responsive in an alley way after using drugs. He admits to suicidal ideation with significant life stressor of his mother passing away recently. Upon review of records he has been to the ER a few times for depression and polysubstance use. Will check U tox, lab workup and have crisis team evaluate him once clinically sober. <ANGEL Ventura - Last Filed: 08/26/22 17:55> 37-year-old male with history of polysubstance abuse and depression presents to the ER for evaluation after he was found minimally responsive in an alley way after using drugs. He admits to suicidal ideation with significant life stressor of his mother passing away recently. Upon review of records he has been to the ER a few times for depression and polysubstance use. Will check U tox, lab workup and have crisis team evaluate him once clinically sober. 0600 08/28/2022 Patient cleared for discharge to [facility]. <ANGEL Perez - Last Filed: 08/28/22 18:01> Reevaluation(s) Reevaluation #1: EKG with question LVH, also could be side effect of cocaine. unchanged from prior compared to 2021 which is reassuring. Lab workup was unremarkable. Troponin is less than 3.5. His prior drug screens were positive for cocaine, opiates and fentanyl. Alcohol level is negative today but still awaiting drug screen in his urine. He has no chest pain or shortness of breath. He is sleeping. Will add troponin. <ANGEL Ventura - Last Filed: 08/26/22 17:55> Reevaluation #2: Lab workup was unremarkable. Troponin is less than 3.5. <ANGEL Ventura - Last Filed: 08/26/22 17:55> Reevaluation #3: Physician observation started at 18:52. Patient placed in physician observation because patient is awaiting [facility] evaluation for the possible need of inpatient psych admission. At the time observation was started patient's vital signs were stable. Patient is sleeping. CV: RRR and lungs are clear. Will continue to monitor. <ANGEL Ventura - Last Filed: 08/26/22 17:55> Time: 07:01 <Baljinder Mckeon MD - Last Filed: 08/27/22 07:01> Additional Reevaluation(s): Physician observation continued patient was agitated last night and is awaiting evaluation by crisis <Baljinder Mckeon MD - Last Filed: 08/27/22 07:01> Medications Administered Discontinued Medications Generic Name Dose Route Start Last Admin Trade Name Freq PRN Reason Stop Dose Admin Clonidine HCl 0.1 mg 08/27/22 15:38 08/27/22 15:40 Clonidine Hcl 0.1 Mg Tablet PO 08/27/22 15:39 0.1 mg ONCE ONE Administration Protocol Lorazepam 2 mg 08/26/22 19:56 08/26/22 20:15 Lorazepam 1 Mg Tablet PO 08/26/22 19:57 Not Given ONCE ONE Lorazepam 2 mg 08/27/22 03:27 08/27/22 03:34 Lorazepam 1 Mg Tablet PO 08/27/22 03:28 2 mg ONCE ONE Administration Lorazepam 2 mg 08/28/22 00:59 08/28/22 01:13 Lorazepam 1 Mg Tablet PO 08/28/22 01:00 2 mg ONCE ONE Administration <ANGEL Ventura - Last Filed: 08/26/22 17:55> Medications Administered Discontinued Medications Generic Name Dose Route Start Last Admin Trade Name Freq PRN Reason Stop Dose Admin Clonidine HCl 0.1 mg 08/27/22 15:38 08/27/22 15:40 Clonidine Hcl 0.1 Mg Tablet PO 08/27/22 15:39 0.1 mg ONCE ONE Administration Protocol Lorazepam 2 mg 08/26/22 19:56 08/26/22 20:15 Lorazepam 1 Mg Tablet PO 08/26/22 19:57 Not Given ONCE ONE Lorazepam 2 mg 08/27/22 03:27 08/27/22 03:34 Lorazepam 1 Mg Tablet PO 08/27/22 03:28 2 mg ONCE ONE Administration Lorazepam 2 mg 08/28/22 00:59 08/28/22 01:13 Lorazepam 1 Mg Tablet PO 08/28/22 01:00 2 mg ONCE ONE Administration <Baljinder Mckeon MD - Last Filed: 08/27/22 07:01> Medications Administered Discontinued Medications Generic Name Dose Route Start Last Admin Trade Name Freq PRN Reason Stop Dose Admin Clonidine HCl 0.1 mg 08/27/22 15:38 08/27/22 15:40 Clonidine Hcl 0.1 Mg Tablet PO 08/27/22 15:39 0.1 mg ONCE ONE Administration Protocol Lorazepam 2 mg 08/26/22 19:56 08/26/22 20:15 Lorazepam 1 Mg Tablet PO 08/26/22 19:57 Not Given ONCE ONE Lorazepam 2 mg 08/27/22 03:27 08/27/22 03:34 Lorazepam 1 Mg Tablet PO 08/27/22 03:28 2 mg ONCE ONE Administration Lorazepam 2 mg 08/28/22 00:59 08/28/22 01:13 Lorazepam 1 Mg Tablet PO 08/28/22 01:00 2 mg ONCE ONE Administration <ANGEL Perez - Last Filed: 08/28/22 18:01> Medical Decision Making Lab Data MDM Lab Attestation statement: I reviewed the patient's lab results. <ANGEL Ventura - Last Filed: 08/26/22 17:55> Result Diagrams: : 08/26/22 16:39 08/26/22 16:39 <ANGEL Ventura - Last Filed: 08/26/22 17:55> Labs: Lab Results 08/26/22 08/26/22 08/26/22 Range/Units 15:57 16:39 16:39 WBC 7.7 (4.8-10.8) X10*3/uL RBC 4.96 (4.60-5.80) X10*6/uL Hgb 12.9 L (14.0-18.0) g/dl Hct 41.0 L (42.0-52.0) % MCV 82.7 (80.0-98.0) fL MCH 26.0 L (27.0-33.0) pg MCHC 31.5 (31.0-36.0) g/dl RDW 14.3 (11.0-16.0) % Plt Count 265 (160-400) X10*3/uL MPV 9.7 (9.4-12.4) fL Immature Gran % (Auto) 0.3 (0.0-0.4) % Neut % (Auto) 67.2 (45-73) % Lymph % (Auto) 25.2 (20-40) % [place] % (Auto) 6.2 (2-11) % Eos % (Auto) 0.6 (0-4) % Baso % (Auto) 0.5 (0-2) % Lymph # (Auto) 2.0 (1.2-4.9) X10*3/uL [place] # (Auto) 0.5 (0.1-1.2) X10*3/uL Eos # (Auto) 0.1 (0.0-0.4) X10*3/uL Baso # (Auto) 0.0 (0.0-0.2) X10*3/uL Abs Immat Gran (auto) 0.02 (0.00-0.03) X10*3/uL Absolute Neuts (auto) 5.2 (2.0-8.3) x10*3/uL Absolute Nucleated RBC 0.000 (0.0-0.012) X10*3/uL Nucleated RBC % (auto) 0.0 (0.0-0.2) /100WBC Sodium 141 (135-145) mmol/L Potassium 3.5 (3.3-5.1) mmol/L Chloride 106 (96-108) mmol/L Carbon Dioxide 28 (22-29) mmol/L Anion Gap 11 L (12-20) BUN 9 (9-16) mg/dL Creatinine 0.83 (0.5-1.4) mg/dL Estim Creat Clear Calc 102.6 Estimated GFR > 60 Random Glucose 144 H (60-115) mg/dL Calcium 8.9 (8.4-10.2) mg/dL Total Bilirubin 0.4 (0.0-1.0) mg/dL AST 19 (5-37) U/L ALT 13 (0-40) U/L Alkaline Phosphatase 87 (39-117) U/L Troponin I High Sens (<3.5-35.0) ng/L Total Protein 6.3 L (6.5-8.0) g/dL Albumin 3.8 (3.5-5.0) g/dL Urine Color Urine Appearance Urine pH (5.0-9.0) Ur Specific [place] (1.005-1.025) Urine Protein (Neg-Trace) mg/dL Urine Glucose (UA) (Negative) mg/dL Urine Ketones (Negative) mg/dL Urine Blood (Negative) Urine Nitrite (Negative) Ur Leukocyte Esterase (Negative) Urine RBC (0-2) /HPF Urine WBC (0-5) /HPF Ur Squamous Epith Cells (0-2) /HPF Urine Bacteria (None Seen) Hyaline Casts (0-2) /LPF Urine Opiates Screen (Not Detect) Urine Fentanyl Screen (Not Detect) Ur Barbiturates Screen (Not Detect) Ur Phencyclidine Scrn (Not Detect) Ur Amphetamines Screen (Not Detect) U Benzodiazepines Scrn (Not Detect) Urine Cocaine Screen (Not Detect) U Marijuana (THC) Screen (Not Detect) Ethyl Alcohol < 10 mg/dL Influenza Type A (PCR) NEGATIVE (Negative) Influenza Type B (PCR) NEGATIVE (Negative) RSV RNA Qual (PCR) NEGATIVE (Negative) SARS-CoV-2 RNA (RT-PCR) NEGATIVE (Negative) 08/26/22 08/26/22 08/26/22 Range/Units 16:39 19:29 19:29 WBC (4.8-10.8) X10*3/uL RBC (4.60-5.80) X10*6/uL Hgb (14.0-18.0) g/dl Hct (42.0-52.0) % MCV (80.0-98.0) fL MCH (27.0-33.0) pg MCHC (31.0-36.0) g/dl RDW (11.0-16.0) % Plt Count (160-400) X10*3/uL MPV (9.4-12.4) fL Immature Gran % (Auto) (0.0-0.4) % Neut % (Auto) (45-73) % Lymph % (Auto) (20-40) % [place] % (Auto) (2-11) % Eos % (Auto) (0-4) % Baso % (Auto) (0-2) % Lymph # (Auto) (1.2-4.9) X10*3/uL [place] # (Auto) (0.1-1.2) X10*3/uL Eos # (Auto) (0.0-0.4) X10*3/uL Baso # (Auto) (0.0-0.2) X10*3/uL Abs Immat Gran (auto) (0.00-0.03) X10*3/uL Absolute Neuts (auto) (2.0-8.3) x10*3/uL Absolute Nucleated RBC (0.0-0.012) X10*3/uL Nucleated RBC % (auto) (0.0-0.2) /100WBC Sodium (135-145) mmol/L Potassium (3.3-5.1) mmol/L Chloride (96-108) mmol/L Carbon Dioxide (22-29) mmol/L Anion Gap (12-20) BUN (9-16) mg/dL Creatinine (0.5-1.4) mg/dL Estim Creat Clear Calc Estimated GFR Random Glucose (60-115) mg/dL Calcium (8.4-10.2) mg/dL Total Bilirubin (0.0-1.0) mg/dL AST (5-37) U/L ALT (0-40) U/L Alkaline Phosphatase (39-117) U/L Troponin I High Sens < 3.5 (<3.5-35.0) ng/L Total Protein (6.5-8.0) g/dL Albumin (3.5-5.0) g/dL Urine Color Yellow Urine Appearance Clear Urine pH 7.0 (5.0-9.0) Ur Specific [place] 1.020 (1.005-1.025) Urine Protein Negative (Neg-Trace) mg/dL Urine Glucose (UA) Negative (Negative) mg/dL Urine Ketones Negative (Negative) mg/dL Urine Blood Negative (Negative) Urine Nitrite Negative (Negative) Ur Leukocyte Esterase Negative (Negative) Urine RBC 0-2 (0-2) /HPF Urine WBC 0-5 (0-5) /HPF Ur Squamous Epith Cells 0-2 (0-2) /HPF Urine Bacteria None Seen (None Seen) Hyaline Casts 0-2 (0-2) /LPF Urine Opiates Screen POSITIVE H (Not Detect) Urine Fentanyl Screen POSITIVE H (Not Detect) Ur Barbiturates Screen Not Detected (Not Detect) Ur Phencyclidine Scrn POSITIVE H (Not Detect) Ur Amphetamines Screen Not Detected (Not Detect) U Benzodiazepines Scrn Not Detected (Not Detect) Urine Cocaine Screen POSITIVE H (Not Detect) U Marijuana (THC) Screen Not Detected (Not Detect) Ethyl Alcohol mg/dL Influenza Type A (PCR) (Negative) Influenza Type B (PCR) (Negative) RSV RNA Qual (PCR) (Negative) SARS-CoV-2 RNA (RT-PCR) (Negative) <ANGEL Ventura - Last Filed: 08/26/22 17:55> Lab Results 08/26/22 08/26/22 08/26/22 Range/Units 15:57 16:39 16:39 WBC 7.7 (4.8-10.8) X10*3/uL RBC 4.96 (4.60-5.80) X10*6/uL Hgb 12.9 L (14.0-18.0) g/dl Hct 41.0 L (42.0-52.0) % MCV 82.7 (80.0-98.0) fL MCH 26.0 L (27.0-33.0) pg MCHC 31.5 (31.0-36.0) g/dl RDW 14.3 (11.0-16.0) % Plt Count 265 (160-400) X10*3/uL MPV 9.7 (9.4-12.4) fL Immature Gran % (Auto) 0.3 (0.0-0.4) % Neut % (Auto) 67.2 (45-73) % Lymph % (Auto) 25.2 (20-40) % [place] % (Auto) 6.2 (2-11) % Eos % (Auto) 0.6 (0-4) % Baso % (Auto) 0.5 (0-2) % Lymph # (Auto) 2.0 (1.2-4.9) X10*3/uL [place] # (Auto) 0.5 (0.1-1.2) X10*3/uL Eos # (Auto) 0.1 (0.0-0.4) X10*3/uL Baso # (Auto) 0.0 (0.0-0.2) X10*3/uL Abs Immat Gran (auto) 0.02 (0.00-0.03) X10*3/uL Absolute Neuts (auto) 5.2 (2.0-8.3) x10*3/uL Absolute Nucleated RBC 0.000 (0.0-0.012) X10*3/uL Nucleated RBC % (auto) 0.0 (0.0-0.2) /100WBC Sodium 141 (135-145) mmol/L Potassium 3.5 (3.3-5.1) mmol/L Chloride 106 (96-108) mmol/L Carbon Dioxide 28 (22-29) mmol/L Anion Gap 11 L (12-20) BUN 9 (9-16) mg/dL Creatinine 0.83 (0.5-1.4) mg/dL Estim Creat Clear Calc 102.6 Estimated GFR > 60 Random Glucose 144 H (60-115) mg/dL Calcium 8.9 (8.4-10.2) mg/dL Total Bilirubin 0.4 (0.0-1.0) mg/dL AST 19 (5-37) U/L ALT 13 (0-40) U/L Alkaline Phosphatase 87 (39-117) U/L Troponin I High Sens (<3.5-35.0) ng/L Total Protein 6.3 L (6.5-8.0) g/dL Albumin 3.8 (3.5-5.0) g/dL Urine Color Urine Appearance Urine pH (5.0-9.0) Ur Specific [place] (1.005-1.025) Urine Protein (Neg-Trace) mg/dL Urine Glucose (UA) (Negative) mg/dL Urine Ketones (Negative) mg/dL Urine Blood (Negative) Urine Nitrite (Negative) Ur Leukocyte Esterase (Negative) Urine RBC (0-2) /HPF Urine WBC (0-5) /HPF Ur Squamous Epith Cells (0-2) /HPF Urine Bacteria (None Seen) Hyaline Casts (0-2) /LPF Urine Opiates Screen (Not Detect) Urine Fentanyl Screen (Not Detect) Ur Barbiturates Screen (Not Detect) Ur Phencyclidine Scrn (Not Detect) Ur Amphetamines Screen (Not Detect) U Benzodiazepines Scrn (Not Detect) Urine Cocaine Screen (Not Detect) U Marijuana (THC) Screen (Not Detect) Ethyl Alcohol < 10 mg/dL Influenza Type A (PCR) NEGATIVE (Negative) Influenza Type B (PCR) NEGATIVE (Negative) RSV RNA Qual (PCR) NEGATIVE (Negative) SARS-CoV-2 RNA (RT-PCR) NEGATIVE (Negative) 08/26/22 08/26/22 08/26/22 Range/Units 16:39 19:29 19:29 WBC (4.8-10.8) X10*3/uL RBC (4.60-5.80) X10*6/uL Hgb (14.0-18.0) g/dl Hct (42.0-52.0) % MCV (80.0-98.0) fL MCH (27.0-33.0) pg MCHC (31.0-36.0) g/dl RDW (11.0-16.0) % Plt Count (160-400) X10*3/uL MPV (9.4-12.4) fL Immature Gran % (Auto) (0.0-0.4) % Neut % (Auto) (45-73) % Lymph % (Auto) (20-40) % [place] % (Auto) (2-11) % Eos % (Auto) (0-4) % Baso % (Auto) (0-2) % Lymph # (Auto) (1.2-4.9) X10*3/uL [place] # (Auto) (0.1-1.2) X10*3/uL Eos # (Auto) (0.0-0.4) X10*3/uL Baso # (Auto) (0.0-0.2) X10*3/uL Abs Immat Gran (auto) (0.00-0.03) X10*3/uL Absolute Neuts (auto) (2.0-8.3) x10*3/uL Absolute Nucleated RBC (0.0-0.012) X10*3/uL Nucleated RBC % (auto) (0.0-0.2) /100WBC Sodium (135-145) mmol/L Potassium (3.3-5.1) mmol/L Chloride (96-108) mmol/L Carbon Dioxide (22-29) mmol/L Anion Gap (12-20) BUN (9-16) mg/dL Creatinine (0.5-1.4) mg/dL Estim Creat Clear Calc Estimated GFR Random Glucose (60-115) mg/dL Calcium (8.4-10.2) mg/dL Total Bilirubin (0.0-1.0) mg/dL AST (5-37) U/L ALT (0-40) U/L Alkaline Phosphatase (39-117) U/L Troponin I High Sens < 3.5 (<3.5-35.0) ng/L Total Protein (6.5-8.0) g/dL Albumin (3.5-5.0) g/dL Urine Color Yellow Urine Appearance Clear Urine pH 7.0 (5.0-9.0) Ur Specific [place] 1.020 (1.005-1.025) Urine Protein Negative (Neg-Trace) mg/dL Urine Glucose (UA) Negative (Negative) mg/dL Urine Ketones Negative (Negative) mg/dL Urine Blood Negative (Negative) Urine Nitrite Negative (Negative) Ur Leukocyte Esterase Negative (Negative) Urine RBC 0-2 (0-2) /HPF Urine WBC 0-5 (0-5) /HPF Ur Squamous Epith Cells 0-2 (0-2) /HPF Urine Bacteria None Seen (None Seen) Hyaline Casts 0-2 (0-2) /LPF Urine Opiates Screen POSITIVE H (Not Detect) Urine Fentanyl Screen POSITIVE H (Not Detect) Ur Barbiturates Screen Not Detected (Not Detect) Ur Phencyclidine Scrn POSITIVE H (Not Detect) Ur Amphetamines Screen Not Detected (Not Detect) U Benzodiazepines Scrn Not Detected (Not Detect) Urine Cocaine Screen POSITIVE H (Not Detect) U Marijuana (THC) Screen Not Detected (Not Detect) Ethyl Alcohol mg/dL Influenza Type A (PCR) (Negative) Influenza Type B (PCR) (Negative) RSV RNA Qual (PCR) (Negative) SARS-CoV-2 RNA (RT-PCR) (Negative) <Baljinder Mckeon MD - Last Filed: 08/27/22 07:01> Lab Results 08/26/22 08/26/22 08/26/22 Range/Units 15:57 16:39 16:39 WBC 7.7 (4.8-10.8) X10*3/uL RBC 4.96 (4.60-5.80) X10*6/uL Hgb 12.9 L (14.0-18.0) g/dl Hct 41.0 L (42.0-52.0) % MCV 82.7 (80.0-98.0) fL MCH 26.0 L (27.0-33.0) pg MCHC 31.5 (31.0-36.0) g/dl RDW 14.3 (11.0-16.0) % Plt Count 265 (160-400) X10*3/uL MPV 9.7 (9.4-12.4) fL Immature Gran % (Auto) 0.3 (0.0-0.4) % Neut % (Auto) 67.2 (45-73) % Lymph % (Auto) 25.2 (20-40) % [place] % (Auto) 6.2 (2-11) % Eos % (Auto) 0.6 (0-4) % Baso % (Auto) 0.5 (0-2) % Lymph # (Auto) 2.0 (1.2-4.9) X10*3/uL [place] # (Auto) 0.5 (0.1-1.2) X10*3/uL Eos # (Auto) 0.1 (0.0-0.4) X10*3/uL Baso # (Auto) 0.0 (0.0-0.2) X10*3/uL Abs Immat Gran (auto) 0.02 (0.00-0.03) X10*3/uL Absolute Neuts (auto) 5.2 (2.0-8.3) x10*3/uL Absolute Nucleated RBC 0.000 (0.0-0.012) X10*3/uL Nucleated RBC % (auto) 0.0 (0.0-0.2) /100WBC Sodium 141 (135-145) mmol/L Potassium 3.5 (3.3-5.1) mmol/L Chloride 106 (96-108) mmol/L Carbon Dioxide 28 (22-29) mmol/L Anion Gap 11 L (12-20) BUN 9 (9-16) mg/dL Creatinine 0.83 (0.5-1.4) mg/dL Estim Creat Clear Calc 102.6 Estimated GFR > 60 Random Glucose 144 H (60-115) mg/dL Calcium 8.9 (8.4-10.2) mg/dL Total Bilirubin 0.4 (0.0-1.0) mg/dL AST 19 (5-37) U/L ALT 13 (0-40) U/L Alkaline Phosphatase 87 (39-117) U/L Troponin I High Sens (<3.5-35.0) ng/L Total Protein 6.3 L (6.5-8.0) g/dL Albumin 3.8 (3.5-5.0) g/dL Urine Color Urine Appearance Urine pH (5.0-9.0) Ur Specific [place] (1.005-1.025) Urine Protein (Neg-Trace) mg/dL Urine Glucose (UA) (Negative) mg/dL Urine Ketones (Negative) mg/dL Urine Blood (Negative) Urine Nitrite (Negative) Ur Leukocyte Esterase (Negative) Urine RBC (0-2) /HPF Urine WBC (0-5) /HPF Ur Squamous Epith Cells (0-2) /HPF Urine Bacteria (None Seen) Hyaline Casts (0-2) /LPF Urine Opiates Screen (Not Detect) Urine Fentanyl Screen (Not Detect) Ur Barbiturates Screen (Not Detect) Ur Phencyclidine Scrn (Not Detect) Ur Amphetamines Screen (Not Detect) U Benzodiazepines Scrn (Not Detect) Urine Cocaine Screen (Not Detect) U Marijuana (THC) Screen (Not Detect) Ethyl Alcohol < 10 mg/dL Influenza Type A (PCR) NEGATIVE (Negative) Influenza Type B (PCR) NEGATIVE (Negative) RSV RNA Qual (PCR) NEGATIVE (Negative) SARS-CoV-2 RNA (RT-PCR) NEGATIVE (Negative) 08/26/22 08/26/22 08/26/22 Range/Units 16:39 19:29 19:29 WBC (4.8-10.8) X10*3/uL RBC (4.60-5.80) X10*6/uL Hgb (14.0-18.0) g/dl Hct (42.0-52.0) % MCV (80.0-98.0) fL MCH (27.0-33.0) pg MCHC (31.0-36.0) g/dl RDW (11.0-16.0) % Plt Count (160-400) X10*3/uL MPV (9.4-12.4) fL Immature Gran % (Auto) (0.0-0.4) % Neut % (Auto) (45-73) % Lymph % (Auto) (20-40) % [place] % (Auto) (2-11) % Eos % (Auto) (0-4) % Baso % (Auto) (0-2) % Lymph # (Auto) (1.2-4.9) X10*3/uL [place] # (Auto) (0.1-1.2) X10*3/uL Eos # (Auto) (0.0-0.4) X10*3/uL Baso # (Auto) (0.0-0.2) X10*3/uL Abs Immat Gran (auto) (0.00-0.03) X10*3/uL Absolute Neuts (auto) (2.0-8.3) x10*3/uL Absolute Nucleated RBC (0.0-0.012) X10*3/uL Nucleated RBC % (auto) (0.0-0.2) /100WBC Sodium (135-145) mmol/L Potassium (3.3-5.1) mmol/L Chloride (96-108) mmol/L Carbon Dioxide (22-29) mmol/L Anion Gap (12-20) BUN (9-16) mg/dL Creatinine (0.5-1.4) mg/dL Estim Creat Clear Calc Estimated GFR Random Glucose (60-115) mg/dL Calcium (8.4-10.2) mg/dL Total Bilirubin (0.0-1.0) mg/dL AST (5-37) U/L ALT (0-40) U/L Alkaline Phosphatase (39-117) U/L Troponin I High Sens < 3.5 (<3.5-35.0) ng/L Total Protein (6.5-8.0) g/dL Albumin (3.5-5.0) g/dL Urine Color Yellow Urine Appearance Clear Urine pH 7.0 (5.0-9.0) Ur Specific Sund[place] 1.020 (1.005-1.025) Urine Protein Negative (Neg-Trace) mg/dL Urine Glucose (UA) Negative (Negative) mg/dL Urine Ketones Negative (Negative) mg/dL Urine Blood Negative (Negative) Urine Nitrite Negative (Negative) Ur Leukocyte Esterase Negative (Negative) Urine RBC 0-2 (0-2) /HPF Urine WBC 0-5 (0-5) /HPF Ur Squamous Epith Cells 0-2 (0-2) /HPF Urine Bacteria None Seen (None Seen) Hyaline Casts 0-2 (0-2) /LPF Urine Opiates Screen POSITIVE H (Not Detect) Urine Fentanyl Screen POSITIVE H (Not Detect) Ur Barbiturates Screen Not Detected (Not Detect) Ur Phencyclidine Scrn POSITIVE H (Not Detect) Ur Amphetamines Screen Not Detected (Not Detect) U Benzodiazepines Scrn Not Detected (Not Detect) Urine Cocaine Screen POSITIVE H (Not Detect) U Marijuana (THC) Screen Not Detected (Not Detect) Ethyl Alcohol mg/dL Influenza Type A (PCR) (Negative) Influenza Type B (PCR) (Negative) RSV RNA Qual (PCR) (Negative) SARS-CoV-2 RNA (RT-PCR) (Negative) <Aysha Clark, PA - Last Filed: 08/28/22 18:01> Independent Interpretation I performed an independent interpretation of an: EKG <ANGEL Ventura Last Filed: 08/26/22 17:55> Interpretation: Normal sinus rhythm with minimal voltage criteria for LVH, doming of ST segment in V2 and V3. This is unchanged from prior and July [address] segment elevations. No ST depressions. Ventricular rate 61 beats per minute with normal HI interval, normal QTC, normal QRS. <ANGEL Ventura Last Filed: 08/26/22 17:55> Discharge Plan Discharge Clinical Impression: Polysubstance abuse <ANGEL Ventura Last Filed: 08/26/22 17:55> Patient Disposition: Home, Self-Care <ANGEL Ventura Last Filed: 08/26/22 17:55> Instructions: Polysubstance Abuse (ED) <ANGEL Ventura Last Filed: 08/26/22 17:55> Additional Instructions: Follow up with your primary care provider. Return to the emergency department immediately if your symptoms worsen or if you develop any dizziness, shortness of breath, difficulty breathing, chest pain, blurry vision, loss of vision, nausea, vomiting, abdominal pain, fever, chills, back pain, or any other complaints. <ANGEL Ventura Last Filed: 08/26/22 17:55> Prescriptions: No Action No Known Home Meds <ANGEL Ventura Last Filed: 08/26/22 17:55> Referrals: [facility] [place] Family Medicine [Provider Group] (Call to establish and follow up with a primary care provider. If you already have a primary care provider, please follow up with them. ) [facility] [place] Primary Care, Juan M [Provider Group] (Call to establish and follow up with a primary care provider. If you already have a primary care provider, please follow up with them. ) [facility] [place] Primary [facility],[place] [Provider Group] (Call to establish and follow up with a primary care provider. If you already have a primary care provider, please follow up with them. ) <ANGEL Ventura Last Filed: 08/26/22 17:55> Interventions: [place]-Suicide Risk Severity Scale Last Done: 08/28/22 12:02 <ANGEL Ventura - Last Filed: 08/26/22 17:55> Print Language: Ugandan <ANGEL Ventura - Last Filed: 08/26/22 17:55>
[2022-08-26 16:50] LABS: MANUAL DIFF FLAG NO
[2022-08-26 16:58] LABS: Basophils Percent Auto 0.5 % (0-2); Eosinophils Absolute Auto 0.1 X10*3/uL (0.0-0.4); Eosinophils Percent Auto 0.6 % (0-4); Hemoglobin 12.9 g/dl (14.0-18.0); Imm Gran Abs Auto 0.02 X10*3/uL (0.00-0.03); Imm Gran Pct Auto 0.3 % (0.0-0.4); Lymphocytes Percent Auto 25.2 % (20-40); Mean Corpuscular HGB Conc 31.5 g/dl (31.0-36.0); Mean Corpuscular Volume 82.7 fL (80.0-98.0); Mean Platelet Volume 9.7 fL (9.4-12.4); Monocytes Absolute Auto 0.5 X10*3/uL (0.1-1.2); Monocytes Percent Auto 6.2 % (2-11); Neutrophils Absolute Auto 5.2 x10*3/uL (2.0-8.3); Neutrophils Percent Auto 67.2 % (45-73); Platelet Count 265 X10*3/uL (160-400); Red Blood Count 4.96 X10*6/uL (4.60-5.80); Red Cell Distribution Width 14.3 % (11.0-16.0); White Blood Count 7.7 X10*3/uL (4.8-10.8)
[2022-08-26 17:05] LABS: Influenza A PCR NEGATIVE (Negative); Influenza B PCR NEGATIVE (Negative); Resp Syncy Virus RNA Qual PCR NEGATIVE (Negative); SARS COV2 PCR INHOUSE NEGATIVE (Negative)
[2022-08-26 17:13] LABS: Alanine Aminotransferase 13 U/L (0-40); Albumin Level 3.8 g/dL (3.5-5.0); Alkaline Phosphatase 87 U/L (39-117); Anion Gap 11 (12-20); Aspartate Amino Transferase 19 U/L (5-37); Bilirubin Total 0.4 mg/dL (0.0-1.0); Blood Urea Nitrogen 9 mg/dL (9-16); Calcium 8.9 mg/dL (8.4-10.2); Carbon Dioxide 28 mmol/L (22-29); Chloride 106 mmol/L (96-108); Creatinine Clr Calc Pharmacy 102.6; Estimated Glomerular Filt Rate > 60; Ethanol < 10 mg/dL; Glucose Random 144 mg/dL (60-115); Potassium 3.5 mmol/L (3.3-5.1); Sodium 141 mmol/L (135-145); Total Protein 6.3 g/dL (6.5-8.0)
[2022-08-26 17:43] LABS: Troponin-I High Sensitivity < 3.5 ng/L (<3.5-35.0)
[2022-08-26 19:38] LABS: Appearance Urine Clear; Color Urine Yellow; Glucose Urine UA Negative (Negative); Leukocyte Esterase Urine Negative (Negative); Nitrite Urine Negative (Negative); Urine Blood Negative (Negative); Urine Ketones Negative (Negative); Urine Protein Negative (Neg-Trace)
[2022-08-26 19:43] LABS: Bacteria Urine None Seen (None Seen); Hyaline Casts Urine 0-2 /LPF (0-2); RBC Urine 0-2 /HPF (0-2); Squamous Epithelial Cell Urine 0-2 /HPF (0-2); WBC Urine 0-5 /HPF (0-5)
[2022-08-26 19:47] LABS: Amphetamine Screen Urine Not Detected (Not Detect); Barbiturates, Urine Not Detected (Not Detect); Benzodiazepines Screen Urine Not Detected (Not Detect); Cannabinoid Screen Urine Not Detected (Not Detect); Cocaine Screen Urine POSITIVE (Not Detect); Fentanyl, urine POSITIVE (Not Detect); Opiate Screen Urine POSITIVE (Not Detect); Phencyclidine Screen Urine POSITIVE (Not Detect)
--- NOTE | 2022-08-26 19:58 | MHC.CARE ---
Pt is a 37 year old male that presented to [facility] [place] [place] ED for evaluation of depression and SI. Pt stated he was not feeling well and was feeling tired. Plan was discussed with Aysha ORTIZ and Yomaira HUNTER. Pt to be assessed in the morning.
[2022-08-27] MEDS: LORazepam 1 MG TABLET 2 MG PO (03:34)
--- NOTE | 2022-08-27 03:37 | PC.NURSE ---
Patient appears restless, VSS, reported anxiety, provider notified/ordered Ativan 2 mg PO/administered as ordered/pending effect, patient will be assessed by care team in the morning, will continue to monitor.
[2022-08-27 03:42] VITALS: BP 142/95; PULSE 78; RESP 16; TEMP 37.6; O2SAT 97
--- NOTE | 2022-08-27 11:52 | MHC.CARE ---
Care team tried to engage with PT on several different occasions during the morning. Pt was lethargic and unable to make conversation. Care team Sw was informed by covering POD nurse that PT had been given Ativan in early am which is causing the PT's sleepiness. Pt was noted to be restless during the night. Care Team will try to re-engage PT later in the early afternoon.
[2022-08-27 15:36] VITALS: BP 142/97; PULSE 73; RESP 17; TEMP 37.7; O2SAT 98
[2022-08-27] MEDS: cloNIDine HCL 0.1 MG TABLET PO (15:40)
[2022-08-28] MEDS: LORazepam 1 MG TABLET 2 MG PO (01:13)
[2022-08-28 01:30] VITALS: BP 146/93; PULSE 74; RESP 17; TEMP 37.2; O2SAT 98
--- NOTE | 2022-08-28 05:41 | PC.NURSE ---
Patient slept through the night, no distress observed/reported, Ativan 2 mg po at 0113 with + effect, VS at baseline, asymptomatic of withdrawal at this time, disposition per care team is detox bed search, behavior appropriate and non concerning, will continue to monitor.
--- NOTE | 2022-08-28 14:11 | MHC.RECOVSUP ---
? Reason for consult Recovery support o Current location: [facility] o Identified substance use concern: Heroin - Seeking ATS (detox) - Support ? Intervention: o ATS bed search [id number] process o Community resources provided o Harm reduction discussion ? Plan: o Patient to follow up with [facility] after discharge ? Additional information: Patient Has a bed pending at [facility]... Paper work was fax.. Patient still needs to complete intake.. Waiting for a call back form [facility]..
--- NOTE | 2022-08-28 17:44 | MHC.CARE ---
Pt completing phone intake with [facility].
[2022-08-28 17:45] VITALS: BP 132/89; PULSE 78; RESP 18; TEMP 37.4; O2SAT 98
[2022-08-28] MEDS: cloNIDine HCL 0.1 MG TABLET PO (18:01)
--- NOTE | 2022-08-28 18:12 | PC.NURSE ---
Patient was c/o bone pain was assessed by this nurse and ANGEL Velásquez was notified. Clonidine was given to patient for discomfort. Pt aware of transport to [facility].
--- NOTE | 2022-08-28 18:36 | MHC.CARE ---
Pt completed phone intake, accepted to [facility] for 7:45PM. Pt will be discharged and transported to the facility via lyft.
== END 2022-08-28 19:40 | disposition home or self-care (01) ==
PROVIDERS: Physician Assistant; Emergency Provider Student in an Organized Health Care Education/Training Program
DX: F19.10 Other psychoactive substance abuse, uncomplicated (principal); F32.A Depression, unspecified; R45.851 Suicidal ideations; Z72.89 Other problems related to lifestyle; Z63.4 Disappearance and death of family member; Z20.822 Contact with and (suspected) exposure to COVID-19
CPT/HCPCS: 0241U; 36415; 80053; 80307; 81001; 82077; 84484; 85025; 93005; 99285

== ENCOUNTER 2022-09-04 05:33 | Emergency (ER) | payer MEDICAID, SELFPAY ==
[2022-09-04 05:57] VITALS: BP 148/105; BP 154/74; PULSE 79; PULSE 92; RESP 16; TEMP 36.4; O2SAT 96; O2SAT 97; BMI 19.8
--- NOTE | 2022-09-04 07:19 | ED.GENADULT ---
HPI - General Adult General Chief complaint: ETOH/Substance Use Stated complaint: Sub abuse Time Seen by Provider: 09/04/22 06:40 Source: patient Mode of arrival: EMS History of Present Illness HPI narrative: 37-year-old male brought in by EMS with a longstanding history of polysubstance use, he denies any use of alcohol at the time of my interview, he denies any attempt for at suicide and denies any current suicidal ideation. Patient states he has been in rehab before and is requesting detox at this time. He states that he snorts heroin and crack cocaine. Related Data Home Medications Medication Instructions Recorded Confirmed No Known Home Meds 08/26/22 08/26/22 Allergies Allergy/AdvReac Type Severity Reaction Status Date / Time fluoxetine [From PROZAC] AdvReac Severe AGITATION/A Verified 08/28/22 05:37 GGRESSIVE Review of Systems Review of Systems: Pertinent positives and negatives as stated in HPI 10 point review of systems otherwise negative. [facility] Past Medical History Source: nursing notes reviewed Medical History Substance abuse Social History Social History Alcohol intake: unknown Smoked in Last 30 Days: Yes Use of substances other than those prescribed or required for medical reasons: Yes Substance Use Type: Crack/Cocaine, Heroin and Marijuana Substance Use Frequency: Daily Last Used Substance: Just Prior to Admission Any prior treatment program specific to substance use: No Advance Directives: No Physical Exam ED Vital Signs: Vital Signs - 24 hr 09/04/22 05:57 09/04/22 10:38 Temperature 97.5 F 97.7 F Pulse Rate 79 60 Respiratory Rate 16 15 Blood Pressure 148/105 H 115/80 Pulse Oximetry 97 97 Oxygen Delivery Method Room Air Room Air BMI result Body Mass Index 19.8 VITAL SIGNS: Reviewed. GENERAL: Patient is unkempt with poor hygiene, in no acute distress. HEAD: Normocephalic/atraumatic EYES: PERRLA, EOMI EARS: Ext canals without abnormality OROPHARYNX: no oral lesions noted, posterior pharynx clear LUNGS: Normal breath sounds. No adventitious sounds or accessory muscle use. SpO2<97> CARDIOVASCULAR: Regular rate and rhythm without noted murmurs ABDOMEN: Soft, non-tender, non-distended with bowel sounds. MUSCULOSKELETAL: No tenderness, deformities, or effusions noted on gross inspection. EXTREMITIES: No cyanosis, clubbing or edema. SKIN: Inspection of the skin reveals no rashes NEUROLOGIC: Sleeping but easily arousable and oriented x 3. Strength and sensation to light touch were grossly intact x 4. Course Reevaluation(s) Reevaluation #1: Patient is awaiting placement at [facility] tomorrow. He is otherwise medically cleared for placement. Time: 14:55 Reevaluation #2: Patient placed in physician observation because the patient needed more time for intake at [facility]. At the time observation was started the patient's vital signs were stable, patient is alert and oriented, neuro: Nonfocal, CV RRR, lungs clear Time: 14:56 Medical Decision Making Medical Decision Making [facility] Narrative: 37-year-old male with longstanding polysubstance use history and is requesting detox at this time and denies any suicidal ideation. Home Narcan has already been ordered in the event that he wishes to leave. He will be observed here for minimum of 2 hours. He is easily arousable at this time and is oxygenating well on room air with no obvious apneic episodes. Lab Data [facility] Lab Attestation statement: I reviewed the patient's lab results. Review all investigations without acute findings. Result Diagrams: 09/04/22 13:55 09/04/22 13:55 Labs: Lab Results 09/04/22 12 Range/Units 13:55 13:55 WBC 5.9 (4.8-10.8) X10*3/uL RBC 4.71 (4.60-5.80) X10*6/uL Hgb 12.4 L (14.0-18.0) g/dl Hct 39.4 L (42.0-52.0) % MCV 83.7 (80.0-98.0) fL MCH 26.3 L (27.0-33.0) pg MCHC 31.5 (31.0-36.0) g/dl RDW 14.2 (11.0-16.0) % Plt Count 239 (160-400) X10*3/uL MPV 9.3 L (9.4-12.4) fL Immature Gran % (Auto) 0.3 (0.0-0.4) % Neut % (Auto) 58.6 (45-73) % Lymph % (Auto) 25.6 (20-40) % [place] % (Auto) 12.6 H (2-11) % Eos % (Auto) 2.4 (0-4) % Baso % (Auto) 0.5 (0-2) % Lymph # (Auto) 1.5 (1.2-4.9) X10*3/uL [place] # (Auto) 0.7 (0.1-1.2) X10*3/uL Eos # (Auto) 0.1 (0.0-0.4) X10*3/uL Baso # (Auto) 0.0 (0.0-0.2) X10*3/uL Abs Immat Gran (auto) 0.02 (0.00-0.03) X10*3/uL Absolute Neuts (auto) 3.4 (2.0-8.3) x10*3/uL Absolute Nucleated RBC 0.000 (0.0-0.012) X10*3/uL Nucleated RBC % (auto) 0.0 (0.0-0.2) /100WBC Sodium 138 (135-145) mmol/L Potassium 4.1 (3.3-5.1) mmol/L Chloride 105 (96-108) mmol/L Carbon Dioxide 26 (22-29) mmol/L Anion Gap 11 L (12-20) BUN 11 (9-16) mg/dL Creatinine 0.80 (0.5-1.4) mg/dL Estim Creat Clear Calc 106.4 Estimated GFR > 60 Random Glucose 74 (60-115) mg/dL Calcium 8.7 (8.4-10.2) mg/dL Total Bilirubin 0.3 (0.0-1.0) mg/dL AST 21 (5-37) U/L ALT 17 (0-40) U/L Alkaline Phosphatase 85 (39-117) U/L Total Protein 6.1 L (6.5-8.0) g/dL Albumin 3.7 (3.5-5.0) g/dL Ethyl Alcohol < 10 mg/dL Discharge Plan Discharge Clinical Impression: Polysubstance use disorder Patient Disposition: Still a Patient Prescriptions: No Action No Known Home Meds Interventions: [place]-Suicide Risk Severity Scale Last Done: 09/04/22 10:38
[2022-09-04 10:38] VITALS: BP 115/80; PULSE 60; RESP 15; TEMP 36.5; O2SAT 97
--- NOTE | 2022-09-04 10:42 | PC.NURSE ---
patient states no alcohol intake , only drugs. he does not drink so CIWA and not done. would consider detox
[2022-09-04 14:04] LABS: MANUAL DIFF FLAG NO
[2022-09-04 14:05] LABS: Basophils Percent Auto 0.5 % (0-2); Eosinophils Absolute Auto 0.1 X10*3/uL (0.0-0.4); Eosinophils Percent Auto 2.4 % (0-4); Hematocrit 39.4 % (42.0-52.0); Hemoglobin 12.4 g/dl (14.0-18.0); Imm Gran Abs Auto 0.02 X10*3/uL (0.00-0.03); Imm Gran Pct Auto 0.3 % (0.0-0.4); Lymphocytes Absolute Auto 1.5 X10*3/uL (1.2-4.9); Lymphocytes Percent Auto 25.6 % (20-40); Mean Corpuscular HGB Conc 31.5 g/dl (31.0-36.0); Mean Corpuscular Hemoglobin 26.3 pg (27.0-33.0); Mean Corpuscular Volume 83.7 fL (80.0-98.0); Mean Platelet Volume 9.3 fL (9.4-12.4); Monocytes Absolute Auto 0.7 X10*3/uL (0.1-1.2); Monocytes Percent Auto 12.6 % (2-11); Neutrophils Absolute Auto 3.4 x10*3/uL (2.0-8.3); Neutrophils Percent Auto 58.6 % (45-73); Platelet Count 239 X10*3/uL (160-400); Red Blood Count 4.71 X10*6/uL (4.60-5.80); Red Cell Distribution Width 14.2 % (11.0-16.0); White Blood Count 5.9 X10*3/uL (4.8-10.8)
--- NOTE | 2022-09-04 14:14 | MHC.RECOVSUP ---
Reason for consult: ATS bed search o Current location: ED-06 o Identified substance use concern: OPIOID - <del>Overdose</del> - Withdrawal - Seeking ATS (detox) - Support ? Intervention: o ATS bed search started/completed/in process: Started <del>o</del> <del>MAT</del> <del>started</del> <del>or</del> <del>to</del> <del>be</del> <del>started</del> <del>o</del> <del>Community</del> <del>resources</del> <del>provided</del> <del>o</del> <del>Harm</del> <del>reduction</del> <del>discussion</del> ? Plan: o [facility] search in progress to: [facility] <del>o</del> <del>Follow</del> <del>up</del> <del>tomorrow</del> <del>o</del> <del>Patient</del> <del>awaiting</del> <del>crisis</del> <del>evaluation</del> <del>o</del> <del>Patient</del> <del>to</del> <del>follow</del> <del>up</del> <del>with</del> <del>[facility]</del> <del>after</del> <del>discharge</del> ? Additional information:I was able to speak with pt an he stated that he is interested in detox. pt also stated that he was in [facility] as recently as 2-3 days ago and that he had left AMA. I was able to speak with intake at [facility] and all paperwork needed for intake will be faxed to them as soon as labs are complete. If accepted, the ATS bed will be available tomorrow morning.
[2022-09-04 14:52] LABS: Alanine Aminotransferase 17 U/L (0-40); Albumin Level 3.7 g/dL (3.5-5.0); Alkaline Phosphatase 85 U/L (39-117); Anion Gap 11 (12-20); Aspartate Amino Transferase 21 U/L (5-37); Bilirubin Total 0.3 mg/dL (0.0-1.0); Blood Urea Nitrogen 11 mg/dL (9-16); Calcium 8.7 mg/dL (8.4-10.2); Carbon Dioxide 26 mmol/L (22-29); Chloride 105 mmol/L (96-108); Creatinine Clr Calc Pharmacy 106.4; Estimated Glomerular Filt Rate > 60; Ethanol < 10 mg/dL; Glucose Random 74 mg/dL (60-115); Potassium 4.1 mmol/L (3.3-5.1); Sodium 138 mmol/L (135-145); Total Protein 6.1 g/dL (6.5-8.0)
[2022-09-04 15:41] LABS: Amphetamine Screen Urine Not Detected (Not Detect); Barbiturates, Urine Not Detected (Not Detect); Benzodiazepines Screen Urine Not Detected (Not Detect); Cannabinoid Screen Urine Not Detected (Not Detect); Cocaine Screen Urine POSITIVE (Not Detect); Fentanyl, urine POSITIVE (Not Detect); Opiate Screen Urine POSITIVE (Not Detect); Phencyclidine Screen Urine Not Detected (Not Detect)
--- NOTE | 2022-09-04 19:59 | PC.NURSE ---
Assumed care of patient. Dinner plate provided. No apparent distress, patient is eating dinner.
[2022-09-04 22:24] VITALS: BP 103/61; PULSE 88; RESP 12; TEMP 36.9; O2SAT 98
--- NOTE | 2022-09-04 23:54 | PC.NURSE ---
Pt c/o headache, body aches, chills, and mildly diaphoretic. Pt states he feels like he is going through withdrawls. Aranza Carrillo NP notified and entering orders in NOV. estate administrator to follow.
[2022-09-05 03:06] VITALS: BP 122/93; PULSE 77; RESP 21; TEMP 36.7; O2SAT 97
--- NOTE | 2022-09-05 03:26 | PC.NURSE ---
Pt scored 4 on CIWA, Dr Hobbs notified and orders were entered into MAR, Librium administered per MAR for withdrawl symptoms. Will continue to monitor.
[2022-09-05 06:16] VITALS: BP 92/74; PULSE 93; RESP 17; TEMP 36.6; O2SAT 97
--- NOTE | 2022-09-05 06:49 | PC.NURSE ---
No apparent distress, pt is sleeping.
[2022-09-05 08:13] VITALS: BP 128/86; PULSE 78; RESP 16; TEMP 36.6; O2SAT 98
[2022-09-05 08:57] VITALS: BP 104/71; PULSE 94; RESP 16; O2SAT 100
--- NOTE | 2022-09-05 09:12 | PC.NURSE ---
Pt up to use urinal however back to sleep at this time. Pt awakes to verbal stimuli. VSS. Awaiting to hear from recovery team regarding pt dispo, ?[facility] bed
--- NOTE | 2022-09-05 10:02 | PC.NURSE ---
Attempted to call [facility] x 2, message left by this RN
--- NOTE | 2022-09-05 11:26 | PC.NURSE ---
Attempted to call [facility] x5 (additional times), no answer or return call from message left earlier
[2022-09-05] MEDS: Naloxone HCl Nasal TAKE HOME 4 MG SPRAY NOSTRILALT (13:08)
[2022-09-05 13:55] VITALS: BP 115/69; PULSE 86; RESP 14; TEMP 36.5; O2SAT 96
--- NOTE | 2022-09-05 15:27 | PC.NURSE ---
After multiple failed attempts to get through to [facility], front office secretary receives a call from facility to inform ED that they have empty beds available, this RN called [facility] back with number noted on caller ID to inquire about this pt. Staff at [facility] attempted to perform intake at that time however pt uncooperative on phone. [facility] called back and in attempt for intake to be done again however now pt requesting to be discharged. Misael IT SERVICE CONTINUITY SUPERVISOR aware.
== END 2022-09-05 16:03 | disposition home or self-care (01) ==
PROVIDERS: Emergency Provider Student in an Organized Health Care Education/Training Program
DX: F11.19 Opioid abuse with unspecified opioid-induced disorder (principal); F14.19 Cocaine abuse with unspecified cocaine-induced disorder; F12.10 Cannabis abuse, uncomplicated; Z71.51 Drug abuse counseling and surveillance of drug abuser; Z79.899 Other long term (current) drug therapy
CPT/HCPCS: 36415; 80053; 80307; 82077; 85025; 99285

== ENCOUNTER 2023-04-17 08:37 | Emergency (ER) | payer MEDICAID, SELFPAY ==
--- NOTE | ~2023-04-17 | US_ITS ---
EXAMINATION: US SCROTUM CLINICAL INFORMATION: Rule out scrotal abscess. COMPARISON: None available. TECHNIQUE: A sonogram of the scrotum was performed assessing armstrong-scale appearance and color Doppler flow. Spectral Doppler analysis of the arterial and venous flow were performed in the testes bilaterally. FINDINGS: RIGHT: Right testicle measures 4.3 x 2.4 x 2.7 cm, volume 15 mL. No focal testicular parenchymal lesions are visualized. A small coarse calcification is seen along the anterior margin of the right testis measuring 0.3 cm. Spectral Doppler analysis of the arterial and venous flow is normal in the right testis. Right epididymal head is normal in size. A small anechoic cyst measures 0.4 cm. The tail is unremarkable. No right hydrocele or varicocele is seen. Right epididymal Doppler flow is normal. A coarse calcification is seen anteriorly between the testes measuring 0.8 x 0.5 x 0.7 cm. LEFT: Left testicle measures 4.4 x 2.5 x 2.5 cm, volume 15 mL. No focal testicular parenchymal lesions are visualized. Spectral Doppler analysis of the arterial and venous flow is normal in the left testis. Left epididymal head is normal in size. No left hydrocele or varicocele is seen. Left epididymal Doppler flow is normal. US/US scrotum IMPRESSION: 1. No significant intratesticular abnormality bilaterally. 2. Small right epididymal cyst demonstrates benign features. 3. Coarse extratesticular calcifications detailed above demonstrate benign features.
--- NOTE | 2023-04-17 08:56 | ED.MALEGU ---
HPI - Male Genitourinary General Chief complaint: Urogenital-Male Stated complaint: GENITAL PAIN X 2 MONTHS,POSSIBLE ETOH Time Seen by Provider: 04/17/23 08:42 Source: patient Mode of arrival: ambulatory Limitations: no limitations History of Present Illness HPI Narrative: this is a 37 years old patient presented to the emergency room with a chief complaint of scrotal pain X 2 Months, denies any fever chills vomiting. He has history of polysubstance abuse, he is on methadone replacement therapy Complaint: other ( scrotal pain) Onset (ago): month(s) (2) Duration: constant Location: right testicle and left testicle Radiation: right testicle and left testicle Severity: moderate Severity scale (1-10): 3 Quality: aching Relieving factors: none Exacerbating factors: none Related Data Previous Rx's Medication Instructions Recorded cephalexin 500 mg capsule 500 mg PO TID 7 days #21 caps 04/17/23 naproxen 500 mg tablet (Naprosyn) 500 mg PO BID PRN PAIN #20 tabs 04/17/23 Allergies Allergy/AdvReac Type Severity Reaction Status Date / Time fluoxetine [From PROZAC] AdvReac Severe AGITATION/A Verified 04/17/23 09:08 GGRESSIVE Review of Systems Constitutional: Constitutional: Reports no additional constitutional complaints Cardiovascular: Cardiovascular: Reports no additional cardiovascular complaints Genitourinary: Genitourinary: Reports scrotal swelling PMFSH Past Medical History PMFSH Narrative: poly substance abuse Medical History Substance abuse Social History Social History Alcohol intake: never Smoked in Last 30 Days: Yes Use of substances other than those prescribed or required for medical reasons: Yes Substance Use Type: Crack/Cocaine and Heroin Last Used Substance: Hours (ago) Advance Directives: No Advance Directives Information Provided: No Physical Exam Vital Signs: Vital Signs: Last Vital Signs Temp 98.4 F 04/17/23 10:43 Pulse 76 04/17/23 10:43 Resp 18 04/17/23 10:43 BP 112/79 04/17/23 10:43 Pulse Ox 98 04/17/23 10:43 O2 Del Method Room Air 04/17/23 10:43 BMI result Body Mass Index 19.8 Const: General: cooperative, comfortable and no acute distress Nutritional Appearance: well nourished Orientation/consciousness: patient oriented x3 Limitations: no limitations HEENT: Head: Yes normal to inspection General nose exam: Normal external nose present Neck: Neck: Yes normal visual inspection and Yes full ROM Chest: Chest palpation & inspection: normal inspection of the chest Resp: Effort & Inspection: normal respiratory effort Auscultation: clear to auscultation bilaterally Cardio: Jugular venous distension: no JVD Rate: regular rate Rhythm: regular rhythm GI: Inspection: Yes normal to inspection Palpation (GI): Soft to palpation and not firm : Other: patient has a large are excoriated in the scrotum. No drainage seen no abscess palpated Skin: General skin exam: no rashes or lesions noted Neuro: General: patient oriented x3 Course Course Course Narrative: patient presented with redness is excoriation the scrotum we did an ultrasound of the is no evidence of abscess, he has no fever, he is not toxic, white count is normal, this problem is been going on for 2 months, I think it is reasonable to discharge him home a follow-up with urologist will cover with antibiotic for possible cellulitis Medications Administered Discontinued Medications Generic Name Dose Route Start Last Admin Trade Name Freq PRN Reason Stop Dose Admin Methadone HCl 70 mg 04/17/23 09:37 04/17/23 10:02 Methadone Hcl 20 Mg/2 Ml Oral.Conc PO 04/17/23 09:38 70 mg ONCE ONE Administration Medical Decision Making Medical Decision Making [facility] Narrative: patient presented with scrotal pain we get the labs / UA/ultrasound Differential Diagnosis Differential Diagnoses: The differential diagnosis associated with the presentation includes differential diagnosis epididymitis/ scrotal abscess Admission/Observation Consideration of admission/observation: Escalation of care including admission/observation considered Lab Data [facility] Lab Attestation statement: I reviewed the patient's lab results. 04/17/23 09:20 04/17/23 09:20 Labs: Lab Results 04/17/23 04/17/23 04/17/23 Range/Units 09:20 09:20 10:45 WBC 8.5 (4.8-10.8) X10*3/uL RBC 5.06 (4.60-5.80) X10*6/uL Hgb 12.1 L (14.0-18.0) g/dl Hct 39.8 L (42.0-52.0) % MCV 78.7 L (80.0-98.0) fL MCH 23.9 L (27.0-33.0) pg MCHC 30.4 L (31.0-36.0) g/dl RDW 16.7 H (11.0-16.0) % Plt Count 286 (160-400) X10*3/uL MPV 9.1 L (9.4-12.4) fL Immature Gran % (Auto) 0.4 (0.0-0.4) % Neut % (Auto) 76.0 H (45-73) % Lymph % (Auto) 11.8 L (20-40) % [place] % (Auto) 6.7 (2-11) % Eos % (Auto) 4.5 H (0-4) % Baso % (Auto) 0.6 (0-2) % Lymph # (Auto) 1.0 L (1.2-4.9) X10*3/uL [place] # (Auto) 0.6 (0.1-1.2) X10*3/uL Eos # (Auto) 0.4 (0.0-0.4) X10*3/uL Baso # (Auto) 0.1 (0.0-0.2) X10*3/uL Abs Immat Gran (auto) 0.03 (0.00-0.03) X10*3/uL Absolute Neuts (auto) 6.5 (2.0-8.3) x10*3/uL Absolute Nucleated RBC 0.000 (0.0-0.012) X10*3/uL Nucleated RBC % (auto) 0.0 (0.0-0.2) /100WBC Sodium 138 (135-145) mmol/L Potassium 3.7 (3.3-5.1) mmol/L Chloride 104 (96-108) mmol/L Carbon Dioxide 27 (22-29) mmol/L Anion Gap 11 L (12-20) BUN 9 (9-16) mg/dL Creatinine 0.79 (0.5-1.4) mg/dL Estim Creat Clear Calc 107.8 Estimated GFR > 60 Random Glucose 140 H (60-115) mg/dL Calcium 8.7 (8.4-10.2) mg/dL Total Bilirubin 0.1 (0.0-1.0) mg/dL AST 13 (5-37) U/L ALT 10 (0-40) U/L Alkaline Phosphatase 77 (39-117) U/L Total Protein 7.8 (6.5-8.0) g/dL Albumin 3.2 L (3.5-5.0) g/dL Urine Color Yellow Urine Appearance Clear Urine pH 6.0 (5.0-9.0) Ur Specific [place] 1.025 (1.005-1.025) Urine Protein Negative (Neg-Trace) mg/dL Urine Glucose (UA) Negative (Negative) mg/dL Urine Ketones Trace (Negative) mg/dL Urine Blood Negative (Negative) Urine Nitrite Negative (Negative) Ur Leukocyte Esterase Small (1+) H (Negative) Urine RBC 0-2 (0-2) /HPF Urine WBC 0-5 (0-5) /HPF Ur Squamous Epith Cells 0-2 (0-2) /HPF Calcium Oxalate Crystal Present Urine Bacteria None Seen (None Seen) Hyaline Casts 0-2 (0-2) /LPF Independent Interpretation I performed an independent interpretation of an: Ultrasound Interpretation: no abscess Radiology Impression Discussion of test interpretation with radiology: I have reviewed the radiologist's reading. Radiologist Impression: Left epididymal head is normal in size. No left hydrocele or varicocele is seen. Left epididymal Doppler flow is normal. US/US scrotum IMPRESSION: 1.? No significant intratesticular abnormality bilaterally. 2.? Small right epididymal cyst demonstrates benign features. 3. Coarse extratesticular calcifications detailed above demonstrate benign features. Prescription Management I considered prescription management with: Antibiotic Chronic Conditions Patient?s care impacted by: Other (opioid use disorder) Social Determinants Patient?s care significantly limited by Social Determinants of Health including: Inadequate housing Discharge Plan Discharge Clinical Impression: Cellulitis Patient Disposition: Home, Self-Care Instructions: Cellulitis (ED) Prescriptions: New cephalexin 500 mg capsule 500 mg PO TID 7 Days Qty: 21 0RF naproxen [Naprosyn] 500 mg tablet 500 mg PO BID PRN (Reason: PAIN) Qty: 20 0RF Referrals: Dev Polk MD [Physician] - 2 days
[2023-04-17 08:58] VITALS: BP 112/80; PULSE 69; O2SAT 97
[2023-04-17 09:00] VITALS: BP 115/73; PULSE 63; RESP 16; TEMP 36.8; O2SAT 98; BMI 19.8
[2023-04-17 09:24] LABS: MANUAL DIFF FLAG NO
[2023-04-17 09:25] LABS: Basophils Absolute Auto 0.1 X10*3/uL (0.0-0.2); Basophils Percent Auto 0.6 % (0-2); Eosinophils Absolute Auto 0.4 X10*3/uL (0.0-0.4); Eosinophils Percent Auto 4.5 % (0-4); Hematocrit 39.8 % (42.0-52.0); Hemoglobin 12.1 g/dl (14.0-18.0); Imm Gran Abs Auto 0.03 X10*3/uL (0.00-0.03); Imm Gran Pct Auto 0.4 % (0.0-0.4); Lymphocytes Percent Auto 11.8 % (20-40); Mean Corpuscular HGB Conc 30.4 g/dl (31.0-36.0); Mean Corpuscular Hemoglobin 23.9 pg (27.0-33.0); Mean Corpuscular Volume 78.7 fL (80.0-98.0); Mean Platelet Volume 9.1 fL (9.4-12.4); Monocytes Absolute Auto 0.6 X10*3/uL (0.1-1.2); Monocytes Percent Auto 6.7 % (2-11); Neutrophils Absolute Auto 6.5 x10*3/uL (2.0-8.3); Platelet Count 286 X10*3/uL (160-400); Red Blood Count 5.06 X10*6/uL (4.60-5.80); Red Cell Distribution Width 16.7 % (11.0-16.0); White Blood Count 8.5 X10*3/uL (4.8-10.8)
--- NOTE | 2023-04-17 09:36 | PC.NURSE ---
verified pt's methadon dose at [facility] and spoke with joselin pierre and pt received 70mg on 04/17/23
[2023-04-17 09:43] LABS: Alanine Aminotransferase 10 U/L (0-40); Albumin Level 3.2 g/dL (3.5-5.0); Alkaline Phosphatase 77 U/L (39-117); Anion Gap 11 (12-20); Aspartate Amino Transferase 13 U/L (5-37); Bilirubin Total 0.1 mg/dL (0.0-1.0); Blood Urea Nitrogen 9 mg/dL (9-16); Calcium 8.7 mg/dL (8.4-10.2); Carbon Dioxide 27 mmol/L (22-29); Chloride 104 mmol/L (96-108); Creatinine Clr Calc Pharmacy 107.8; Estimated Glomerular Filt Rate > 60; Glucose Random 140 mg/dL (60-115); Potassium 3.7 mmol/L (3.3-5.1); Sodium 138 mmol/L (135-145); Total Protein 7.8 g/dL (6.5-8.0)
--- NOTE | 2023-04-17 09:44 | PC.NURSE ---
pt a&ox3. respirations even and unlabored. pt reporting pain in groin area 04/20. redness, excoriation and swelling noted on the testicles as well as down to the anus. pt reports being cold, warm blanket given. pt reports doing crack cocaine and heroin last night. vss.
[2023-04-17] MEDS: methADONE HCl 20 MG/2 ML ORAL.CONC 70 MG PO (10:02)
[2023-04-17 10:43] VITALS: BP 112/79; PULSE 76; RESP 18; TEMP 36.9; O2SAT 98
[2023-04-17 11:00] LABS: Appearance Urine Clear; Color Urine Yellow; Glucose Urine UA Negative (Negative); Leukocyte Esterase Urine Small (1+) (Negative); Nitrite Urine Negative (Negative); Specific Gravity - Urine 1.025 (1.005-1.025); UMIC TRIGGER UACC YES; Urine Blood Negative (Negative); Urine Ketones Trace mg/dL (Negative); Urine Protein Negative (Neg-Trace)
[2023-04-17 11:13] LABS: Bacteria Urine None Seen (None Seen); Calcium Oxalate Crystals Urine Present; Hyaline Casts Urine 0-2 /LPF (0-2); RBC Urine 0-2 /HPF (0-2); Squamous Epithelial Cell Urine 0-2 /HPF (0-2); UACC Culture Trigger YES; WBC Urine 0-5 /HPF (0-5)
== END 2023-04-17 13:05 | disposition home or self-care (01) ==
PROVIDERS: Emergency Provider Emergency Medicine
DX: N49.2 Inflammatory disorders of scrotum (principal); N50.82 Scrotal pain; F19.10 Other psychoactive substance abuse, uncomplicated
CPT/HCPCS: 36415; 76870; 80053; 81001; 85025; 87086; 99284

== ENCOUNTER 2024-10-04 10:19 | Outpatient (REF) | payer MEDICAID, SELFPAY ==
[2024-10-04 11:45] LABS: MANUAL DIFF FLAG NO
[2024-10-04 12:05] LABS: Basophils Percent Auto 0.7 % (0-2); Eosinophils Absolute Auto 0.3 X10*3/uL (0.0-0.4); Eosinophils Percent Auto 4.7 % (0-4); Hemoglobin 14.1 g/dl (14.0-18.0); Imm Gran Abs Auto 0.01 X10*3/uL (0.00-0.03); Imm Gran Pct Auto 0.2 % (0.0-0.4); Lymphocytes Absolute Auto 2.3 X10*3/uL (1.2-4.9); Lymphocytes Percent Auto 38.5 % (20-40); Mean Corpuscular HGB Conc 31.3 g/dl (31.0-36.0); Mean Corpuscular Hemoglobin 24.3 pg (27.0-33.0); Mean Corpuscular Volume 77.6 fL (80.0-98.0); Mean Platelet Volume 10.6 fL (9.4-12.4); Monocytes Absolute Auto 0.6 X10*3/uL (0.1-1.2); Monocytes Percent Auto 9.7 % (2-11); Neutrophils Absolute Auto 2.8 x10*3/uL (2.0-8.3); Neutrophils Percent Auto 46.2 % (45-73); Platelet Count 275 X10*3/uL (160-400); Red Cell Distribution Width 16.1 % (11.0-16.0)
[2024-10-04 15:33] LABS: Alanine Aminotransferase 29 U/L (0-40); Albumin Level 4.2 g/dL (3.5-5.0); Alkaline Phosphatase 123 U/L (39-117); Aspartate Amino Transferase 33 U/L (5-37); Bilirubin Direct < 0.2 mg/dL (0.0-0.5); Bilirubin Total 0.2 mg/dL (0.0-1.0); Blood Urea Nitrogen 14 mg/dL (9-16); Estimated Glomerular Filt Rate > 60; Total Protein 8.1 g/dL (6.5-8.0)
[2024-10-05 08:18] LABS: HBS Num1 22.45 mIU/mL (0-7.99); HBc Num1 0.05 S/CO (0.00-0.79); HBsAGNum1 0.29 S/CO (0.00-0.99); HIV AB/AG Nonreactive (Nonreactive); HIV Num 1 0.06 S/CO (0.00-0.99); Hepatitis B Core Antibody Nonreactive (Nonreactive); Hepatitis B Surface Antigen Negative (Negative); ~Hepatitis B Surface Antibody REACTIVE (Nonreactive); ~Hepatitis C Antibody Nonreactive (Nonreactive)
[2024-10-05 08:21] LABS: Hepatitis A Antibody IgG REACTIVE (Nonreactive); ~Hepatitis A Antibody IgG 8.29 S/CO (0.00-0.99)
[2024-10-07 12:34] LABS: RPR Rapid Plasma Reagin REACTIVE (NON-REACTIVE)
[2024-10-07 19:39] LABS: TS Negative Control Passed; TS Panel A 0; TS Panel B 1; TS Positive Control Passed; TSpotTB Negative (Negative)
== END 2024-10-04 10:20 | disposition home or self-care (01) ==
LOC: HO.HHCL 10:19
PROVIDERS: Visit Provider Emergency Medicine
DX: F11.20 Opioid dependence, uncomplicated (principal); Z11.1 Encounter for screening for respiratory tuberculosis; Z11.3 Encounter for screening for infections with a predominantly sexual mode of transmission; Z11.59 Encounter for screening for other viral diseases
CPT/HCPCS: 36415; 80076; 82565; 84520; 85025; 86481; 86592; 86593; 86704; 86706; 86708; 86803; 87340; 87389